=== PATIENT | female | born 1985 | race Caucasian/White ===

== ENCOUNTER 2017-01-11 18:11 | Inpatient (IN) | payer OTHER ==
[2017-01-11] MEDS ORDERED: SODIUM CHLORIDE 0.9% 500 ML IV STA (19:14)
--- NOTE | 2017-01-11 19:39 | CT ---
EXAMINATION TYPE: CT brain wo con DATE OF EXAM: 01/11/2017 COMPARISON: 06/09/2016 HISTORY: Right sided numbness x [address] DLP: 970.[address] of the brain was performed. The ventricles, basal cisterns and sulci overlying the cerebral convexities demonstrate a normal appe arance. There is no evidence for intracranial hemorrhage or sulcal effacement. No mass effects are seen. Osseous calvarium is intact. If symptoms persist consider MRI as clinically warranted. IMPRESSION: 1. No acute intracranial process is seen at this time.
[2017-01-11 19:40] LABS: Basophils # (A) 0.1 k/uL (0-0.2); Basophils % (A) 1 %; CH 31.1; CHCM 36.1; Eosinophils # (A) 0.1 k/uL (0-0.7); Eosinophils % (A) 2 %; HCT 39.9 % (34.0-46.0); HDW 2.57; HGB 14.4 gm/dL (11.4-16.0); Luc # (Auto) 0.23; Luc % (Auto) 3; Lymphocytes # (A) 2.7 k/uL (1.0-4.8); Lymphocytes % (A) 31 %; MCHC 35.9 g/dL (31.0-37.0); MCV 86.3 fL (80.0-100.0); Mean Platelet Volume 6.5; Monocytes # (A) 0.7 k/uL (0-1.0); Monocytes % (A) 8 %; Neutrophils # (A) 4.9 k/uL (1.3-7.7); Neutrophils % (A) 56 %; RBC 4.63 m/uL (3.80-5.40); RDW 12.1 % (11.5-15.5); WBC 8.7 k/uL (3.8-10.6); WBC (Perox) 8.35
--- NOTE | 2017-01-11 19:41 | XR ---
EXAMINATION TYPE: XR chest 2V DATE OF EXAM: 01/11/2017 COMPARISON: 06/09/16 HISTORY: Chest pain TECHNIQUE: Frontal and lateral views of the chest are obtained. FINDINGS: There is no focal air space opacity. No evidence for pneumothorax. No pleural effusion. The cardiac silhouette size is within normal limits. The osseous structures are grossly intact. IMPRESSION: 1. No acute cardiopulmonary process.
[2017-01-11 19:47] LABS: Amorphous Sediment,Urine Rare /hpf; Appearance,Urine Cloudy (Clear); Bacteria,Urine Rare /hpf; Bilirubin,Urine Negative (Negative); Glucose,Urine (UA) Negative (Negative); Ketones,Urine Negative (Negative); Leukocyte Esterase,Urine Negative (Negative); Mucus,Urine Rare /hpf; Nitrite,Urine Negative (Negative); Particle Count 5215; Protein,Urine Trace (Negative); RBC,Urine 1 /hpf (0-5); Squamous Epithelial Cell,Urine 8 /hpf (0-4); UA Billing (MACRO vs. MICRO) MICRO; Urobilinogen,Urine <2.0 mg/dL (<2.0); WBC,Urine 19 /hpf (0-5)
[2017-01-11 19:49] LABS: ALT 36 U/L (9-52); AST 22 U/L (14-36); Alkaline Phosphatase 41 U/L (38-126); Anion Gap 10 mmol/L; Blood Urea Nitrogen 14 mg/dL (7-17); Calcium 9.7 mg/dL (8.4-10.2); Carbon Dioxide 25 mmol/L (22-30); Chloride 108 mmol/L (98-107); Glucose 76 mg/dL (74-99); Non-African American GFR(MDRD) >60 (>60 ml/min/1.73 sqM); Potassium 3.9 mmol/L (3.5-5.1); Sodium 143 mmol/L (137-145); Total Bilirubin 0.5 mg/dL (0.2-1.3); Total Protein 7.3 g/dL (6.3-8.2)
--- NOTE | 2017-01-11 19:53 | ED ---
General Adult HPI - General Chief complaint: Chest Pain Stated complaint: numbness on rt side, chest pain, syncope Time Seen by Provider: 01/11/17 19:08 Source: patient, RN notes reviewed Mode of arrival: wheelchair Limitations: no limitations - History of Present Illness Initial comments: 31-year-old female presents to the emergency department with a chief complaint of multiple complaints. Patient states she has had changes in sensation in the right side of face and right arm and right leg and she feels as if it is weaker. Patient states she's also been having some chest pain as well. Patient states that she had the start one week ago on Monday she's been to her doctor she's into the emergency room and they could never find anything wrong. Patient states she continues to have the symptoms so she was concerned. Patient denies any fever chills nausea vomiting. Patient states she is a former smoker but did quit one week ago. Patient states that she was concerned due to her symptoms so she thought that she should be evaluated.Patient denies any recent fever, chills, shortness of breath, back pain, abdominal pain, nausea vomiting, dysuria or hematuria, constipation or diarrhea, headaches or visual changes, or any other current symptoms. - Related Data Home Medications Medication Instructions Recorded Confirmed DULoxetine HCL [Cymbalta] 30 mg PO HS 01/11/17 01/11/17 Ergocalciferol [Vitamin D2] 50,000 unit PO TH 01/11/17 01/11/17 Hydrochlorothiazide [Hydrodiuril] 25 mg PO DAILY 01/11/17 01/11/17 Allergies Allergy/AdvReac Type Severity Reaction Status Date / Time codeine Allergy Rash/Hives Verified 01/11/17 19:52 metoclopramide [From Reglan] Allergy Rash/Hives Verified 01/11/17 19:52 Penicillins Allergy Rash/Hives Verified 01/11/17 19:52 Sulfa (Sulfonamide Allergy Rash/Hives Verified 01/11/17 18:18 Antibiotics) Review of Systems ROS Statement: Those systems with pertinent positive or pertinent negative responses have been documented in the HPI. ROS Other: All systems not noted in ROS Statement are negative. Past Medical History Past Medical History: CVA/TIA, Hypertension Additional Past Medical History / Comment(s): migraines History of Any Multi-Drug Resistant Organisms: MRSA Date of last positivie culture/infection: 2005 MDRO Source:: abd Past Surgical History: Tubal Ligation Past Psychological History: Anxiety, Depression Smoking Status: Former smoker Past Alcohol Use History: None Reported Past Drug Use History: None Reported General Exam - General Exam Comments Initial Comments: General: The patient is awake and alert, in no distress, and does not appear acutely ill. Eye: Pupils are equal, round and reactive to light, extra-ocular movements are intact; there is normal conjunctiva bilaterally. No signs of icterus. Ears, nose, mouth and throat: There are moist mucous membranes. Neck: The neck is supple, there is no tenderness. Cardiovascular: There is a regular rate and rhythm. No murmur, rub or gallop is appreciated. Respiratory: Lungs are clear to auscultation, respirations are non-labored, breath sounds are equal. No wheezes, stridor, rales, or rhonchi. Gastrointestinal: Soft, non-distended, non-tender abdomen without masses or organomegaly noted. There is no rebound or guarding present. No CVA tenderness. Bowel sounds are unremarkable. Back: There is no tenderness to palpation in the midline. There is no obvious deformity. No rashes noted. Musculoskeletal: Normal ROM, no tenderness, There is no pedal edema. There is no calf tenderness or swelling. Sensation intact. Pulses equal bilaterally 2+. Neurological: CN II-XII intact, There are no obvious motor or sensory deficits. Coordination appears grossly intact. Speech is normal. patient complains of right sided difference compared to right to touch. NIH 1 due to patient complaining of abnormal sensation but still has sensation. Skin: Skin is warm and dry and no rashes or lesions are noted. Psychiatric: Cooperative, appropriate mood & affect, normal judgment. Limitations: no limitations Course Vital Signs 01/11/17 01/11/17 18:14 20:17 Temperature 97.9 F 98.6 F Pulse Rate 92 71 Respiratory 18 18 Rate Blood Pressure 157/85 142/71 O2 Sat by Pulse 100 100 Oximetry EKG Findings - EKG Comments: EKG Findings:: normal sinus rhythm 74 bpm, normal axis, no atopy, no S-T depressions or elevations, Medical Decision Making - Medical Decision Making 31 yo female presents to the ER with multiple complaints. At this time due to the continued numbness and tingling to the right arm leg and right side of the face there is concern for possible CVA. Patient was given aspirin. We will admit. Patient is complaining of chest pain on and off as well. Troponins are negative and it has been on and off for the past week. We will repeat troponins for evaluation however we will. EKG does not show any visits to the emergency department. Patient denies any recent this plan. We did contact on- call for city in the do accept the admission to Dr. Winslow. - Lab Data Result diagrams: 01/11/17 19:10 01/11/17 19:10 Lab Results 01/11/17 01/11/17 01/11/17 Range/Units 19:10 19:10 19:10 WBC 8.7 (3.8-10.6) k/uL RBC 4.63 (3.80-5.40) m/uL Hgb 14.4 (11.4-16.0) gm/dL Hct 39.9 (34.0-46.0) % MCV 86.3 (80.0-100.0) fL MCH 31.0 (25.0-35.0) pg MCHC 35.9 (31.0-37.0) g/dL RDW 12.1 (11.5-15.5) % Plt Count 351 (150-450) k/uL Neutrophils % 56 % Lymphocytes % 31 % Monocytes % 8 % Eosinophils % 2 % Basophils % 1 % Neutrophils # 4.9 (1.3-7.7) k/uL Lymphocytes # 2.7 (1.0-4.8) k/uL Monocytes # 0.7 (0-1.0) k/uL Eosinophils # 0.1 (0-0.7) k/uL Basophils # 0.1 (0-0.2) k/uL PT (9.0-12.0) sec INR (<1.1) APTT (22.0-30.0) sec Sodium 143 (137-145) mmol/L Potassium 3.9 (3.5-5.1) mmol/L Chloride 108 H (98-107) mmol/L Carbon Dioxide 25 (22-30) mmol/L Anion Gap 10 mmol/L BUN 14 (7-17) mg/dL Creatinine 0.62 (0.52-1.04) mg/dL Est GFR (MDRD) Af Amer >60 (>60 ml/min/1.73 sqM) Est GFR (MDRD) Non-Af >60 (>60 ml/min/1.73 sqM) Glucose 76 (74-99) mg/dL Calcium 9.7 (8.4-10.2) mg/dL Total Bilirubin 0.5 (0.2-1.3) mg/dL AST 22 (14-36) U/L ALT 36 (9-52) U/L Alkaline Phosphatase 41 (38-126) U/L Total Creatine Kinase 66 (30-135) U/L CK-MB (CK-2) <0.2 (0.0-2.4) ng/mL CK-MB (CK-2) Rel Index Troponin I <0.012 (0.000-0.034) ng/mL Total Protein 7.3 (6.3-8.2) g/dL Albumin 4.5 (3.5-5.0) g/dL Urine Color Urine Appearance (Clear) Urine pH (5.0-8.0) Ur Specific [place] (1.001-1.035) Urine Protein (Negative) Urine Glucose (UA) (Negative) Urine Ketones (Negative) Urine Blood (Negative) Urine Nitrite (Negative) Urine Bilirubin (Negative) Urine Urobilinogen (<2.0) mg/dL Ur Leukocyte Esterase (Negative) Urine RBC (0-5) /hpf Urine WBC (0-5) /hpf Ur Squamous Epith Cells (0-4) /hpf Amorphous Sediment (None) /hpf Urine Bacteria (None) /hpf Urine Mucus (None) /hpf Urine Opiates Screen (NotDetected) Ur Oxycodone Screen (NotDetected) Urine Methadone Screen (NotDetected) Ur Propoxyphene Screen (NotDetected) Ur Barbiturates Screen (NotDetected) U Tricyclic Antidepress (NotDetected) Ur Phencyclidine Scrn (NotDetected) Ur Amphetamines Screen (NotDetected) U Methamphetamines Scrn (NotDetected) U Benzodiazepines Scrn (NotDetected) Urine Cocaine Screen (NotDetected) U Marijuana (THC) Screen (NotDetected) 01/11/17 01/11/17 Range/Units 19:10 19:10 WBC (3.8-10.6) k/uL RBC (3.80-5.40) m/uL Hgb (11.4-16.0) gm/dL Hct (34.0-46.0) % MCV (80.0-100.0) fL MCH (25.0-35.0) pg MCHC (31.0-37.0) g/dL RDW (11.5-15.5) % Plt Count (150-450) k/uL Neutrophils % % Lymphocytes % % Monocytes % % Eosinophils % % Basophils % % Neutrophils # (1.3-7.7) k/uL Lymphocytes # (1.0-4.8) k/uL Monocytes # (0-1.0) k/uL Eosinophils # (0-0.7) k/uL Basophils # (0-0.2) k/uL PT 10.3 (9.0-12.0) sec INR 1.0 (<1.1) APTT 22.8 (22.0-30.0) sec Sodium (137-145) mmol/L Potassium (3.5-5.1) mmol/L Chloride (98-107) mmol/L Carbon Dioxide (22-30) mmol/L Anion Gap mmol/L BUN (7-17) mg/dL Creatinine (0.52-1.04) mg/dL Est GFR (MDRD) Af Amer (>60 ml/min/1.73 sqM) Est GFR (MDRD) Non-Af (>60 ml/min/1.73 sqM) Glucose (74-99) mg/dL Calcium (8.4-10.2) mg/dL Total Bilirubin (0.2-1.3) mg/dL AST (14-36) U/L ALT (9-52) U/L Alkaline Phosphatase (38-126) U/L Total Creatine Kinase (30-135) U/L CK-MB (CK-2) (0.0-2.4) ng/mL CK-MB (CK-2) Rel Index Troponin I (0.000-0.034) ng/mL Total Protein (6.3-8.2) g/dL Albumin (3.5-5.0) g/dL Urine Color Yellow Urine Appearance Cloudy H (Clear) Urine pH 6.0 (5.0-8.0) Ur Specific [place] 1.020 (1.001-1.035) Urine Protein Trace H (Negative) Urine Glucose (UA) Negative (Negative) Urine Ketones Negative (Negative) Urine Blood Negative (Negative) Urine Nitrite Negative (Negative) Urine Bilirubin Negative (Negative) Urine Urobilinogen <2.0 (<2.0) mg/dL Ur Leukocyte Esterase Negative (Negative) Urine RBC 1 (0-5) /hpf Urine WBC 19 H (0-5) /hpf Ur Squamous Epith Cells 8 H (0-4) /hpf Amorphous Sediment Rare H (None) /hpf Urine Bacteria Rare H (None) /hpf Urine Mucus Rare H (None) /hpf Urine Opiates Screen Not Detected (NotDetected) Ur Oxycodone Screen Not Detected (NotDetected) Urine Methadone Screen Not Detected (NotDetected) Ur Propoxyphene Screen Not Detected (NotDetected) Ur Barbiturates Screen Not Detected (NotDetected) U Tricyclic Antidepress Not Detected (NotDetected) Ur Phencyclidine Scrn Not Detected (NotDetected) Ur Amphetamines Screen Not Detected (NotDetected) U Methamphetamines Scrn Not Detected (NotDetected) U Benzodiazepines Scrn Not Detected (NotDetected) Urine Cocaine Screen Not Detected (NotDetected) U Marijuana (THC) Screen Not Detected (NotDetected) - Radiology Data Radiology results: report reviewed, image reviewed Disposition Clinical Impression: Atypical chest pain, Paresthesia of right arm and leg Disposition: ADMITTED IP TO THIS [facility] Condition: Stable Referrals: Nonstaff,Physician [Primary Care Provider] - 1-2 days Time of Disposition: 21:34 Decision Date: 01/11/17 Decision Time: 21:34
[2017-01-11 19:57] LABS: Partial Thromboplastin Time 22.8 sec (22.0-30.0); Prothrombin Time 10.3 sec (9.0-12.0)
[2017-01-11 20:25] LABS: Creatine Kinase 66 U/L (30-135)
[2017-01-11 20:39] LABS: Creatine Kinase MB <0.2 ng/mL (0.0-2.4); Troponin I <0.012 ng/mL (0.000-0.034)
[2017-01-11] MEDS ORDERED: ASPIRIN 325 MG TAB PO STA (21:34)
[2017-01-11 23:39] VITALS: BMI 39.4
[2017-01-12 07:10] LABS: Cholesterol 173 mg/dL (<200); HDL Cholesterol 36 mg/dL (40-60); Triglycerides 275 mg/dL (<150)
[2017-01-12] MEDS ORDERED: ERGOCALCIFEROL 50,000 UNIT CAP PO SCH (09:00)
[2017-01-12] MEDS: HYDROCHLOROTHIAZIDE 25 MG TAB PO SCH (09:43)
[2017-01-12] MEDS: ASPIRIN 325 MG TAB PO SCH (09:43)
--- NOTE | 2017-01-12 11:25 | US ---
EXAMINATION TYPE: US carotid duplex BILAT DATE OF EXAM: 01/11/2017 COMPARISON: NONE CLINICAL HISTORY: Stenosis. EXAM MEASUREMENTS: RIGHT: Peak Systolic Velocity (PSV) cm/sec ----- Right CCA: 88.6 ----- Right ICA: 88.6 ----- Right ECA: 90.0 ICA/CCA ratio: 1.2 RIGHT: End Diastole cm/sec ----- Right CCA: 18.8 ----- Right ICA: 42.0 ----- Right ECA: 10.0 LEFT: Peak Systolic Velocity (PSV) cm/sec ----- Left CCA: 79.2 ----- Left ICA: 85.8 ----- Left ECA: 67.3 ICA/CCA ratio: 1.1 LEFT: End Diastole cm/sec ----- Left CCA: 27.6 ----- Left ICA: 38.2 ----- Left ECA: 13.1 VERTEBRALS (direction of flow): Right Vertebral: Antegrade Left Vertebral: Antegrade Minimal plaque visualized bilaterally. No elevated velocities IMPRESSION: 1. Minimal plaque bilaterally with no significant hemodynamic stenosis.
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
[2017-01-12] MEDS ORDERED: ACETAMINOPHEN TAB 325 MG TAB PO PRN (18:36)
[2017-01-12] MEDS ORDERED: NAPROXEN 250 MG TAB PO STA (18:43)
[2017-01-12] MEDS ORDERED: DULoxetine HCL 30 MG CAPSULE.DR PO SCH (21:00)
--- NOTE | 2017-01-12 21:07 | MR ---
EXAMINATION TYPE: MR brain wo/w con DATE OF EXAM: 01/12/2017 COMPARISON: NONE HISTORY: Right sided paresthesia, atypical chest pain TECHNIQUE: Multiplanar, multisequence images of the brain and brainstem is performed without and with IV contrast, utilizing 20 mL intravenous MultiHance . FINDINGS: Diffusion weighted images demonstrate no evidence of a recent infarct or other diffusion ab normality. There is no extra-axial fluid collection or significant white matter signal abnormality. The ventricular system and cisternal spaces are normal in size and appearance. The brain volume is age appropriate. Midline structures demonstrate normal morphology. The craniocervical junction appears within normal limits. Post contrast images demonstrate no abnormal enhancement. The dural venous sinuses appear pa tent. The visualized sinuses are clear and the globes are intact. IMPRESSION: No acute process or focal findings.
--- NOTE | 2017-01-12 22:49 | CONS ---
DATE OF CONSULTATION: 01/12/2017 CHIEF COMPLAINT: Right-sided numbness. HISTORY OF PRESENT ILLNESS: The patient is a 31-year-old female who is being evaluated by the neurology service per the request of Dr. Feliciano for right-sided numbness. The patient states that she has been having numbness and tingling involving her right face and in different locations of the right upper extremity and right lower extremity. She states that her hand and fingers have been numb on the right side and she is also having numbness in the distal right lower extremity and occasionally in the right thigh. Her symptoms started 2 to 3 weeks ago, and she denies any lateralizing weakness. She states that she did go to [facility] last weekend and a workup was done; she was told that "everything is fine" and she was discharged home. Over the past 2 days, she started having some blurred vision in the right eye without any ocular pain. When asked about previous symptoms similar to this, she states that she did have similar symptoms a few years ago, but the workup was negative at that time as well. On this admission, a CT scan of the brain was done which was normal. Her carotid Doppler showed no hemodynamically significant stenosis. Her CBC, comprehensive metabolic profile, cardiac enzymes, and urine drug screen were reviewed and were normal. Her urinalysis showed 19 WBCs and her fasting lipid panel showed mildly elevated triglycerides at 275. The patient was admitted for further workup and management. At the time of my evaluation, she is lying in her bed and appears to be in no acute distress. She denies any changes in her right-sided numbness but states that her blurred vision has improved. She does report a family history of multiple sclerosis. PAST MEDICAL HISTORY: 1. Hypertension. 2. Migraine headaches. 3. Sleep apnea. 4. Depression. 5. Anxiety disorder. 6. History of tubal ligation. FAMILY HISTORY: Positive for multiple sclerosis, dyslipidemia and hypertension. SOCIAL HISTORY: The patient is a former smoker. She quit one month ago. She denies any alcohol or drug use. HOME MEDICATIONS: Reviewed in the chart. ALLERGIES: 1. CODEINE. 2. REGLAN. 3. PENICILLIN. 4. SULFA DRUGS. REVIEW OF SYSTEMS: CONSTITUTIONAL: Positive for fatigue. EYES: As mentioned above. ENT: Negative. CARDIOVASCULAR: Negative. RESPIRATORY: Negative. NEUROLOGICAL: As mentioned above. GASTROINTESTINAL: Negative. GENITOURINARY: Negative. PSYCHIATRIC: Positive for history of depression and anxiety disorder. ENDOCRINE: Negative. MUSCULOSKELETAL: Negative. DERMATOLOGICAL: Negative. PHYSICAL EXAM: Vitals signs show a temperature of 97.9, pulse 82, respiration 16, blood pressure 147/83. GENERAL APPEARANCE: The patient is a mildly obese female who appears to be in no acute distress. HEENT: Normocephalic, atraumatic. No facial asymmetry is seen. Extraocular muscles are intact. Neck is supple with no masses felt. CARDIOVASCULAR: Regular rate and rhythm. ABDOMEN: Non-tender. Non-distended. Extremities showed no edema or clubbing. NEUROLOGICAL EXAM: The patient is alert, aware and oriented x3. Speech and language are normal. Strength is full in all 4 extremities. Sensory exam showed diminished light touch sensation on the right upper and lower extremity compared to the left. Cranial nerve testing showed diminished light touch sensation on the right face compared to the left. No pronator drift is seen. No dysmetria is noticed on [id number] testing. No tremors or seizure-like activity is seen. INVESTIGATION: The patient did have an MRI of the brain with and without contrast. The report is still pending, but I did review the images, which showed a single solitary non-specific white matter lesion involving the right posterior frontal lobe with no abnormal contrast enhancement. IMPRESSION: 1. Right-sided numbness and tingling. 2. Non-specific white matter changes. 3. Urinary tract infection. RECOMMENDATION: The patient continues to have numbness and tingling involving the right side and she does have a sensory deficit on neurological examination. She does report a previous episode similar to this a few years ago and does have a family history of multiple sclerosis. Although the non-specific white matter lesion seen on the MRI of the brain does not explain her right-sided numbness, further neurological workup will be needed, which will include spinal fluid evaluation, which will be done in the outpatient setting. Her official MRI of the brain report was still pending at the time of my evaluation. I will start her on Solu-Medrol 250 mg IV every 8 hours and will monitor for improvements over the next 24 to 48 hours. I do recommend antibiotic therapy for her urinary tract infection. Continue neuro checks. I will continue to follow with you. Further recommendations to follow. Thank you for allowing me to participate in the care of your patient. If you have any questions, please feel free to contact me. JACK
[2017-01-12 23:05] LABS: Glucose,Whole Blood 120 mg/dL (75-99)
[2017-01-13 05:30] LABS: Glucose,Whole Blood 169 mg/dL (75-99)
[2017-01-13 06:44] LABS: CHCM 35.5; HCT 41.9 % (34.0-46.0); HDW 2.57; HGB 15.2 gm/dL (11.4-16.0); MCH 31.8 pg (25.0-35.0); MCHC 36.3 g/dL (31.0-37.0); MCV 87.6 fL (80.0-100.0); Mean Platelet Volume 6.6; RBC 4.78 m/uL (3.80-5.40); RDW 11.9 % (11.5-15.5); WBC 9.5 k/uL (3.8-10.6)
[2017-01-13 07:07] LABS: Anion Gap 15 mmol/L; Blood Urea Nitrogen 11 mg/dL (7-17); Calcium 9.5 mg/dL (8.4-10.2); Carbon Dioxide 18 mmol/L (22-30); Chloride 108 mmol/L (98-107); Cholesterol 222 mg/dL (<200); Glucose 155 mg/dL (74-99); HDL Cholesterol 54 mg/dL (40-60); Non-African American GFR(MDRD) >60 (>60 ml/min/1.73 sqM); Potassium 4.4 mmol/L (3.5-5.1); Sodium 141 mmol/L (137-145); Triglycerides 78 mg/dL (<150)
[2017-01-13] MEDS: HYDROCHLOROTHIAZIDE 25 MG TAB PO SCH (09:27)
[2017-01-13] MEDS: ASPIRIN 325 MG TAB PO SCH (09:27)
[2017-01-13 11:46] LABS: Glucose,Whole Blood 183 mg/dL (75-99)
[2017-01-13] MEDS ORDERED: ACETAMINOPHEN TAB 325 MG TAB PO PRN (11:56)
[2017-01-13] MEDS: INSULIN LISPRO (humaLOG) 300 UNIT/3 ML VIAL SQ SCH ×3 (13:12→22:26)
[2017-01-13 13:59] LABS: Hemoglobin A1C 5.1 % (4.2-6.1)
--- NOTE | 2017-01-13 15:52 | P.DS ---
Providers Date of admission: 01/11/17 21:50 Attending physician: Clarisse Feliciano Consults: 01/11/17 21:35 Consult Physician Routine Consulting Provider: Maricarmen Leone Consult Reason/Comments: paresthesia Do you want consulting provider notified?: Yes, Notify in am Primary care physician: Physician Nonstaff Hospital Course: 39-year-old female came in with sensory deficits on the right side multiple areas not consistent with CVA or any particular area in the brain. Patient underwent workup for CVA. Patient was worked up with an MRI for multiple cirrhosis MRI official radiology reading was negative. As per the neurologist there is some demyelinating lesions in the right side of the body and patient will need further workup for multiple sclerosis as an outpatient and [place] patient will follow with neurology as an outpatient for that patient was given high-dose of steroids here although patient still has areas which are numb without any significant improvement. Patient will be discharged on Medrol Dosepak. Her hemoglobin A1c is 5.1. #1 focal areas of numbness: 2 chest pain: Atypical nature ruled out acute coronary syndromes. 3 hypertension: Uncontrolled blood pressure and had good thiazide which will be continued. Obesity: Counseled was provided #4 patient does not have UTI patient's urine is contaminated and patient does not have any symptoms of urinary tract infection. Patient Condition at Discharge: Stable Plan - Discharge Summary New Discharge Prescriptions: New methylPREDNISolone Dose Pack [Medrol Dose Pack] 4 mg PO DIRECTED #21 package No Action Hydrochlorothiazide [Hydrodiuril] 25 mg PO DAILY Ergocalciferol [Vitamin D2] 50,000 unit PO TH DULoxetine HCL [Cymbalta] 30 mg PO HS Discharge Medication List DULoxetine HCL [Cymbalta] 30 mg PO HS 01/11/17 [History] Ergocalciferol [Vitamin D2] 50,000 unit PO TH 01/11/17 [History] Hydrochlorothiazide [Hydrodiuril] 25 mg PO DAILY 01/11/17 [History] methylPREDNISolone Dose Pack [Medrol Dose Pack] 4 mg PO DIRECTED #21 package 01/13/17 [Rx] Follow up Appointment(s)/Referral(s): Maricarmen Leone MD [STAFF PHYSICIAN] - 1 Week Nonstaff,Physician [Primary Care Provider] - 1-2 days
[2017-01-13 16:54] LABS: Glucose,Whole Blood 148 mg/dL (75-99)
[2017-01-13] MEDS ORDERED: SODIUM CHLORIDE 0.9% 1,000 ML IV SCH (17:30)
[2017-01-13] MEDS: SODIUM CHLORIDE 0.9% 1,000 ML IV SCH (20:05)
[2017-01-13 20:53] LABS: Glucose,Whole Blood 162 mg/dL (75-99)
[2017-01-13] MEDS ORDERED: NALOXONE 0.4 MG/ML 1 ML VIAL IV PRN (21:42)
[2017-01-13] MEDS ORDERED: VANCOMYCIN 1,500 MG in SODIUM CHLORIDE 0.9% 250 ML IVPB ONE (22:04)
[2017-01-13] MEDS: ALPRAZolam 0.25 MG TAB PO PRN (22:18)
[2017-01-13 22:23] LABS: Basophils % (A) 0 %; CHCM 35.2; Eosinophils # (A) 0.1 k/uL (0-0.7); Eosinophils % (A) 0 %; HCT 40.6 % (34.0-46.0); HDW 2.53; HGB 14.2 gm/dL (11.4-16.0); Luc # (Auto) 0.07; Luc % (Auto) 0; Lymphocytes # (A) 0.9 k/uL (1.0-4.8); Lymphocytes % (A) 4 %; MCH 30.8 pg (25.0-35.0); MCHC 34.9 g/dL (31.0-37.0); MCV 88.4 fL (80.0-100.0); Mean Platelet Volume 6.7; Monocytes # (A) 0.5 k/uL (0-1.0); Monocytes % (A) 2 %; Neutrophils # (A) 20.8 k/uL (1.3-7.7); Neutrophils % (A) 93 %; RDW 12.1 % (11.5-15.5); WBC 22.3 k/uL (3.8-10.6)
[2017-01-13 22:28] LABS: INR 1.1 (<1.2)
[2017-01-13 22:38] LABS: ALT 37 U/L (9-52); AST 23 U/L (14-36); Alkaline Phosphatase 50 U/L (38-126); Anion Gap 14 mmol/L; Blood Urea Nitrogen 12 mg/dL (7-17); Calcium 9.5 mg/dL (8.4-10.2); Carbon Dioxide 19 mmol/L (22-30); Chloride 109 mmol/L (98-107); Glucose 159 mg/dL (74-99); Non-African American GFR(MDRD) >60 (>60 ml/min/1.73 sqM); Potassium 3.4 mmol/L (3.5-5.1); Sodium 142 mmol/L (137-145); Total Bilirubin 0.2 mg/dL (0.2-1.3); Total Protein 6.9 g/dL (6.3-8.2)
[2017-01-13] MEDS ORDERED: DULoxetine HCL 30 MG CAPSULE.DR PO ONE (22:45)
--- NOTE | 2017-01-13 22:49 | P.PN ---
Subjective Principal diagnosis: Right-sided paresthesias of the skin Patient is a 31-year-old female being followed by neurology for right-sided numbness and tingling. Patient has been having numbness and tingling involving her right face and in various locations of the right upper extremity and right lower extremity over the past several weeks. States that her hand and fingers have been numb on the right side and is also having numbness in the distal right lower extremity and occasionally in the right thigh. Patient denies any lateralizing weakness. States she did present at [facility] last week and was told that they were unable to identify any underlying etiology. Over the past 2 days she began having blurred vision in the right eye without any ocular pain. Patient states she had similar symptoms a few years ago but the workup conducted at that time was negative as well. CT of the brain was normal. Carotid Doppler showed no hemodynamically significant stenosis. CBC, CMP, cardiac enzymes and urine drug screen were normal. UA indicated 19 wbc's in her fasting lipid panel showed mildly elevated triglycerides at 275. Patient admitted for further workup and management. Patient was supine in bed, resting and in no acute distress. Patient was alert and oriented 3. Patient was post Solu-Medrol IV infusion as previously ordered. Objective - Vital Signs Vital signs: Vital Signs Temp 98.5 F 01/13/17 15:00 Pulse 119 H 01/13/17 15:00 Resp 18 01/13/17 15:00 BP 151/85 01/13/17 15:00 Pulse Ox 94 L 01/13/17 15:00 Intake & Output 01/13/17 01/13/17 01/14/17 06:59 18:59 06:59 Intake Total 380 300 Output Total 200 Balance 180 300 Weight 112.5 kg Intake: IV 100 100 methylPREDNISolone SOD 100 100 SUCC 250 mg In Sodium Chloride 0.9% 100 ml @ 100 mls/hr IVPB Q8H [facility] Rx#:[id number] Intake, IV Titration 100 Amount methylPREDNISolone SOD 100 SUCC 250 mg In Sodium Chloride 0.9% 100 ml @ 100 mls/hr IVPB Q8H [facility] Rx#:[id number] Oral 180 200 Output: Urine 200 Other: Voiding Method Toilet Toilet # Voids 1 - Exam Constitutional: AOx3, cooperative HEENT: NC/AT, no facial asymmetry is seen. Throat: Supple, no masses Respiratory: No increased work of breathing Cardiac: Regular rate and Rhythm GI: non tender, non distended Musculoskeletal: Ammonia Nitrate Operator strengths are equal bilaterally 5/5, Lower extremity strengths are equal bilaterally at 5/5. Neurological: CN II-XII in tact, patient was AOx3, speech and language are normal, no unilateralizing weakness, no seizure activity note on physical exam. Sensation was normal. Integementary: no rash, no erythema Psychiatric: mood and affect appropriate - Labs CBC & Chem 7: 01/13/17 22:11 01/13/17 06:11 Labs: Abnormal Lab Results - Last 24 Hours (Table) 01/12/17 01/13/17 01/13/17 Range/Units 23:03 05:29 06:11 WBC (3.8-10.6) k/uL Neutrophils # (1.3-7.7) k/uL Lymphocytes # (1.0-4.8) k/uL Chloride 108 H (98-107) mmol/L Carbon Dioxide 18 L (22-30) mmol/L Glucose 155 H (74-99) mg/dL POC Glucose (mg/dL) 120 H 169 H (75-99) mg/dL Plasma Lactic Acid Raf (0.7-2.0) mmol/L Cholesterol 222 H (<200) mg/dL LDL Cholesterol, Calc 152 H (0-99) mg/dL 01/13/17 01/13/17 01/13/17 Range/Units 11:45 16:15 16:51 WBC (3.8-10.6) k/uL Neutrophils # (1.3-7.7) k/uL Lymphocytes # (1.0-4.8) k/uL Chloride (98-107) mmol/L Carbon Dioxide (22-30) mmol/L Glucose (74-99) mg/dL POC Glucose (mg/dL) 183 H 148 H (75-99) mg/dL Plasma Lactic Acid Raf 4.3 H* (0.7-2.0) mmol/L Cholesterol (<200) mg/dL LDL Cholesterol, Calc (0-99) mg/dL 01/13/17 01/13/17 01/13/17 Range/Units 19:03 20:51 22:11 WBC 22.3 H (3.8-10.6) k/uL Neutrophils # 20.8 H (1.3-7.7) k/uL Lymphocytes # 0.9 L (1.0-4.8) k/uL Chloride (98-107) mmol/L Carbon Dioxide (22-30) mmol/L Glucose (74-99) mg/dL POC Glucose (mg/dL) 162 H (75-99) mg/dL Plasma Lactic Acid Raf 6.3 H* (0.7-2.0) mmol/L Cholesterol (<200) mg/dL LDL Cholesterol, Calc (0-99) mg/dL Assessment and Plan (1) Paresthesia of right arm and leg Status: Acute (2) Migraine headache Status: Acute (3) Sleep apnea Status: Acute (4) Depression Status: Acute (5) Anxiety Status: Acute Plan: Patient has completed IV steroid infusion with decreased symptoms in the right side. Patient's sensory deficit on neurological exam has returned to baseline. Patient does have a history of similar episode several years ago and does have a positive family history for multiple sclerosis. As noted previously the nonspecific white matter lesion seen on MRI of the brain does not explain her right-sided numbness, further outpatient neurological workup will be needed including spinal fluid evaluation/lumbar puncture but again this can be done in the outpatient setting. Patient was given IV Solu-Medrol to 50 mg IV every 8 hours for greater than 24 hours. Patient did receive antibiotic therapy for her urinary tract infection. Treatment: Medrol Dosepak to be continued outpatient Status: Patient can be cleared for discharge from a neurological standpoint. Patient to follow-up outpatient within 10-14 days for further diagnostic workup as noted above. I discussed the patient's pertinent medical information with Dr. Leone. He agrees with the plan of care as implemented.
[2017-01-13] MEDS: DULoxetine HCL 60 MG CAPSULE.DR PO SCH (22:53)
[2017-01-13 22:59] LABS: Magnesium 1.8 mg/dL (1.6-2.3); Phosphorous 2.6 mg/dL (2.5-4.5)
[2017-01-13] MEDS ORDERED: RX INFO: IV CONTRAST WAS GIVEN 1 EACH MISC MISCELLANE PRN (23:00)
[2017-01-13] MEDS ORDERED: Magnesium Replacement Protocol 1 EACH MISC MISCELLANE PRN (23:13)
[2017-01-13] MEDS ORDERED: Potassium Replacement Protocol 1 EACH MISC MISCELLANE PRN (23:13)
[2017-01-13] MEDS: MORPHINE SULFATE 4 MG/ML SYRINGE IVP PRN (23:16)
[2017-01-13] MEDS: IOHEXOL 350 MG/ML 25 ML BOTTLE (ORAL USE) PO PRN (23:40)
[2017-01-13] MEDS: MAGNESIUM SULFATE-D5W PMX 1 GM in DEXTROSE/WATER 1 100ML.BAG IVPB SCH (23:45)
[2017-01-13] MEDS ORDERED: KETOROLAC 30 MG/ML 1 ML VIAL IVP PRN (23:57)
[2017-01-14] MEDS ORDERED: KETOROLAC 30 MG/ML 1 ML VIAL IVP SCH
[2017-01-14] MEDS: CEFEPIME 1 GM in SODIUM CHLORIDE 0.9% 50 ML IVPB SCH ×3 (00:16→16:35)
[2017-01-14] MEDS: IOHEXOL 350 MG/ML 25 ML BOTTLE (ORAL USE) PO PRN (00:16)
[2017-01-14] MEDS: POTASSIUM CHLORIDE ER 20 MEQ TAB.ER PO SCH ×2 (01:32→01:33)
[2017-01-14] MEDS: MAGNESIUM SULFATE-D5W PMX 1 GM in DEXTROSE/WATER 1 100ML.BAG IVPB SCH (01:33)
[2017-01-14] MEDS: HEPARIN SODIUM,PORCINE 5,000 UNIT/ML 1 ML VIAL SQ SCH ×4 (01:33→16:32)
--- NOTE | 2017-01-14 01:50 | CT ---
EXAM: CT Abdomen and Pelvis With Intravenous Contrast CLINICAL HISTORY: Right sided abdominal pain. TECHNIQUE: Axial computed tomography images of the abdomen and pelvis with intravenous contrast. CTDI is 61.3 mGy and DLP is 3045.60 mGy-cm. This CT exam was performed using one or more of the following dose reduction techniques: automated exposure control, adjustment of the mA and/or kV according to patient size, and/or use of iterative reconstruction technique. COMPARISON: None. FINDINGS: Lower thorax: Minimal dependent atelectasis seen involving both lower lobes. ABDOMEN: Liver: Evidence of hepatic steatosis. Gallbladder and bile ducts: Unremarkable. No calcified stones. No ductal dilation. Pancreas: Unremarkable. No mass. No ductal dilation. Spleen: Unremarkable. No splenomegaly. Adrenals: Unremarkable. No mass. Kidneys and ureters: Unremarkable. No solid mass. No hydronephrosis. Stomach and bowel: Unremarkable. No obstruction. No mucosal thickening. Appendix: Normal appendix is identified. PELVIS: Bladder: Unremarkable. No mass. Reproductive: Unremarkable as visualized. ABDOMEN and PELVIS: Intraperitoneal space: Unremarkable. No free air. No significant fluid collection. Bones/joints: No acute fracture. No dislocation. Soft tissues: Unremarkable. Vasculature: Unremarkable. No abdominal aortic aneurysm. Lymph nodes: Unremarkable. No enlarged lymph nodes. IMPRESSION: 1. Hepatic steatosis suggested. 2. No acute intra-abdominal pathology.
[2017-01-14] MEDS: SODIUM CHLORIDE 0.9% 1,000 ML IV SCH ×2 (03:40→12:21)
[2017-01-14 05:05] LABS: Basophils % (A) 0 %; CH 30.7; CHCM 34.9; Eosinophils # (A) 0.1 k/uL (0-0.7); Eosinophils % (A) 1 %; HDW 2.49; HGB 13.7 gm/dL (11.4-16.0); Luc % (Auto) 0; Lymphocytes # (A) 1.2 k/uL (1.0-4.8); Lymphocytes % (A) 5 %; MCH 31.1 pg (25.0-35.0); MCHC 35.2 g/dL (31.0-37.0); MCV 88.4 fL (80.0-100.0); Mean Platelet Volume 6.9; Monocytes # (A) 0.7 k/uL (0-1.0); Monocytes % (A) 3 %; Neutrophils # (A) 22.9 k/uL (1.3-7.7); Neutrophils % (A) 92 %; RBC 4.41 m/uL (3.80-5.40); RDW 12.1 % (11.5-15.5); WBC 24.9 k/uL (3.8-10.6)
[2017-01-14 05:29] LABS: ALT 37 U/L (9-52); AST 19 U/L (14-36); Alkaline Phosphatase 46 U/L (38-126); Anion Gap 13 mmol/L; Blood Urea Nitrogen 12 mg/dL (7-17); Calcium 9.1 mg/dL (8.4-10.2); Carbon Dioxide 20 mmol/L (22-30); Chloride 108 mmol/L (98-107); Glucose 149 mg/dL (74-99); Magnesium 2.5 mg/dL (1.6-2.3); Non-African American GFR(MDRD) >60 (>60 ml/min/1.73 sqM); Potassium 4.4 mmol/L (3.5-5.1); Sodium 141 mmol/L (137-145); Total Bilirubin 0.3 mg/dL (0.2-1.3); Total Protein 6.6 g/dL (6.3-8.2)
[2017-01-14 05:32] LABS: INR 1.1 (<1.2); Prothrombin Time 10.7 sec (9.0-12.0)
[2017-01-14] MEDS: INSULIN LISPRO (humaLOG) 300 UNIT/3 ML VIAL SQ SCH ×4 (08:07→21:57)
[2017-01-14] MEDS: DULoxetine HCL 60 MG CAPSULE.DR PO SCH (08:08)
[2017-01-14] MEDS: ASPIRIN 325 MG TAB PO SCH (08:08)
[2017-01-14] MEDS ORDERED: PANTOPRAZOLE 40 MG/10 ML VIAL IV SCH (09:00)
[2017-01-14] MEDS ORDERED: DULoxetine HCL 60 MG CAPSULE.DR PO SCH ×2 (09:00→21:00)
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
[2017-01-14 12:21] LABS: Glucose,Whole Blood 142 mg/dL (75-99)
[2017-01-14 12:26] LABS: Appearance,Urine Clear (Clear); Bilirubin,Urine Negative (Negative); Glucose,Urine (UA) 4+ (Negative); Ketones,Urine 1+ (Negative); Leukocyte Esterase,Urine Negative (Negative); Nitrite,Urine Negative (Negative); Protein,Urine Trace (Negative); Specific Gravity,Urine 1.033 (1.001-1.035); UA Billing (MACRO vs. MICRO) CHEM; Urobilinogen,Urine <2.0 mg/dL (<2.0)
[2017-01-14] MEDS: MORPHINE SULFATE 4 MG/ML SYRINGE IVP PRN ×2 (12:27→18:26)
--- NOTE | 2017-01-14 13:39 | P.PN ---
Subjective Patient came in with tingling and numbness in the patient was discharged Medrol Dosepak yesterdayl as patient had anion gap although patient was initially discharged I did order lactic acid which came back at about 4 later in the day went up to 6 source sepsis is not clear and patient had leukocytosis of 22,000 which may be secondary to the systemic steroids she is on. Although because of significant elevation lactic acid there is a concern of autoimmune hepatitis along with unknown source of sepsis because of which patient was transferred to ICU for close clinical monitoring patient was afebrile. Overnight. Patient lactic acid has come down. Now started going up again. Patient may have had D - lactate or extremely rare case scenario and mitochondrial disorder, considering the significant elevation we will wait for infectious diseases evaluation. Patient was started on vancomycin and cefepime yesterday, vancomycin was discontinued which I believe is appropriate. Septum is being continued. Patient will transfer to regular floor will watch her one more night. If patient doesn't have any other signs or symptoms of sepsis patient will be discharged tomorrow. Her urine is not impressive for urinary tract infection and patient doesn't have any symptoms of UTI. REVIEW OF SYSTEMS: CARDIOVASCULAR: No chest pain, no orthopnea, no PND, no palpitations. PULMONARY: Denied any shortness of breath. No cough or hemoptysis. GASTROINTESTINAL: No diarrhea, nausea or vomiting. No abdominal pain. Normoactive bowel sounds. NEUROLOGIC: No headaches, no weakness, no numbness. Objective - Vital Signs Vital signs: Vital Signs Temp 98.0 F 01/14/17 12:00 Pulse 81 01/14/17 12:00 Resp 18 01/14/17 12:00 BP 141/86 01/14/17 12:00 Pulse Ox 95 01/14/17 12:00 Intake & Output 01/13/17 01/14/17 01/14/17 18:59 06:59 18:59 Intake Total 300 1850 620 Output Total 1250 850 Balance 300 600 -230 Weight 116.6 kg 116.6 kg Intake: IV 100 1850 300 Cefepime 1 gm In Sodium 50 Chloride 0.9% 50 ml @ 100 mls/hr IVPB Q8HR [facility] Rx# :[id number] Magnesium Sulfate-D5w Pmx 200 1 gm In Dextrose/Water 1 100ml.bag @ 100 mls/hr IVPB Q1H [facility] Rx#: [id number] Sodium Chloride 0.9% 1, 1350 300 000 ml @ 150 mls/hr IV . Q6H40M [facility] Rx#:[id number] Vancomycin 1,500 mg In 250 Sodium Chloride 0.9% 250 ml @ 125 mls/hr IVPB ONCE ONE Rx#:[id number] methylPREDNISolone SOD 100 SUCC 250 mg In Sodium Chloride 0.9% 100 ml @ 100 mls/hr IVPB Q8H [facility] Rx#:[id number] Intake, IV Titration 200 Amount Cefepime 1 gm In Sodium 100 Chloride 0.9% 50 ml @ 100 mls/hr IVPB Q8HR [facility] Rx# :[id number] methylPREDNISolone SOD 100 SUCC 250 mg In Sodium Chloride 0.9% 100 ml @ 100 mls/hr IVPB Q8H [facility] Rx#:[id number] Oral 200 120 Output: Urine 1250 850 Other: Voiding Method Toilet Toilet Toilet # Voids 1 - Exam PHYSICAL EXAMINATION: GENERAL: The patient is alert and oriented x3, not in any acute distress. Well developed, well nourished. HEENT: Pupils are round and equally reacting to light. EOMI. No scleral icterus. No conjunctival pallor. Normocephalic, atraumatic. No pharyngeal erythema. No thyromegaly. CARDIOVASCULAR: S1 and S2 present. No murmurs, rubs, or gallops. PULMONARY: Chest is clear to auscultation, no wheezing or crackles. ABDOMEN: Soft, nontender, nondistended, normoactive bowel sounds. No palpable organomegaly. MUSCULOSKELETAL: No joint swelling or deformity. EXTREMITIES: No cyanosis, clubbing, or pedal edema. NEUROLOGICAL: No syncope and change in her tingling numbness. SKIN: No rashes. - Labs CBC & Chem 7: 01/14/17 04:47 01/14/17 04:47 Labs: Abnormal Lab Results - Last 24 Hours (Table) 01/13/17 01/13/17 01/13/17 Range/Units 16:15 16:51 19:03 WBC (3.8-10.6) k/uL Neutrophils # (1.3-7.7) k/uL Lymphocytes # (1.0-4.8) k/uL Potassium (3.5-5.1) mmol/L Chloride (98-107) mmol/L Carbon Dioxide (22-30) mmol/L Glucose (74-99) mg/dL POC Glucose (mg/dL) 148 H (75-99) mg/dL Plasma Lactic Acid Raf 4.3 H* 6.3 H* (0.7-2.0) mmol/L Magnesium (1.6-2.3) mg/dL Urine Protein (Negative) Urine Glucose (UA) (Negative) Urine Ketones (Negative) 01/13/17 01/13/17 01/13/17 Range/Units 20:51 22:11 22:11 WBC 22.3 H (3.8-10.6) k/uL Neutrophils # 20.8 H (1.3-7.7) k/uL Lymphocytes # 0.9 L (1.0-4.8) k/uL Potassium 3.4 L (3.5-5.1) mmol/L Chloride 109 H (98-107) mmol/L Carbon Dioxide 19 L (22-30) mmol/L Glucose 159 H (74-99) mg/dL POC Glucose (mg/dL) 162 H (75-99) mg/dL Plasma Lactic Acid Raf (0.7-2.0) mmol/L Magnesium (1.6-2.3) mg/dL Urine Protein (Negative) Urine Glucose (UA) (Negative) Urine Ketones (Negative) 01/13/17 01/14/17 01/14/17 Range/Units 22:11 04:47 04:47 WBC 24.9 H (3.8-10.6) k/uL Neutrophils # 22.9 H (1.3-7.7) k/uL Lymphocytes # (1.0-4.8) k/uL Potassium (3.5-5.1) mmol/L Chloride 108 H (98-107) mmol/L Carbon Dioxide 20 L (22-30) mmol/L Glucose 149 H (74-99) mg/dL POC Glucose (mg/dL) (75-99) mg/dL Plasma Lactic Acid Raf 4.2 H* (0.7-2.0) mmol/L Magnesium 2.5 H (1.6-2.3) mg/dL Urine Protein (Negative) Urine Glucose (UA) (Negative) Urine Ketones (Negative) 01/14/17 01/14/17 01/14/17 Range/Units 04:47 09:16 12:15 WBC (3.8-10.6) k/uL Neutrophils # (1.3-7.7) k/uL Lymphocytes # (1.0-4.8) k/uL Potassium (3.5-5.1) mmol/L Chloride (98-107) mmol/L Carbon Dioxide (22-30) mmol/L Glucose (74-99) mg/dL POC Glucose (mg/dL) (75-99) mg/dL Plasma Lactic Acid Raf 2.7 H* 4.9 H* (0.7-2.0) mmol/L Magnesium (1.6-2.3) mg/dL Urine Protein Trace H (Negative) Urine Glucose (UA) 4+ H (Negative) Urine Ketones 1+ H (Negative) 01/14/17 Range/Units 12:18 WBC (3.8-10.6) k/uL Neutrophils # (1.3-7.7) k/uL Lymphocytes # (1.0-4.8) k/uL Potassium (3.5-5.1) mmol/L Chloride (98-107) mmol/L Carbon Dioxide (22-30) mmol/L Glucose (74-99) mg/dL POC Glucose (mg/dL) 142 H (75-99) mg/dL Plasma Lactic Acid Raf (0.7-2.0) mmol/L Magnesium (1.6-2.3) mg/dL Urine Protein (Negative) Urine Glucose (UA) (Negative) Urine Ketones (Negative) Assessment and Plan Plan: #1 focal areas of numbness: Patient's MRA is negative but neurology still believes patient may have multiple sclerosis. Patient on systems steroids. 2 highly elevated lactic acid: Without any significant source of infection further management as discussed in HP3 3 chest pain: Atypical nature rule out acute coronary syndromes. 4 hypertension: Obesity: Counseled was provided Spent about 40 minutes of critical care time in managing the patient
[2017-01-14 17:11] LABS: Glucose,Whole Blood 129 mg/dL (75-99)
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
[2017-01-14 18:17] VITALS: RESP 16
--- NOTE | 2017-01-14 20:23 | P.PN ---
Subjective Principal diagnosis: Right-sided paresthesias of the skin Patient is a 31-year-old female being followed by neurology for right-sided numbness and tingling. Patient has been having numbness and tingling involving her right face and in various locations of the right upper extremity and right lower extremity over the past several weeks. States that her hand and fingers have been numb on the right side and is also having numbness in the distal right lower extremity and occasionally in the right thigh. Patient denies any lateralizing weakness. Patient was treated and was cleared for discharge yesterday when she began having a fever prior to discharge post solumedrol infusion. Patient was seen by ID and recommended further antibiotic treatment. Patient is alert and oriented x3, sitting in a bedside chair and in no acute distress. Patient states that she has begun feeling much better but still has intermittent right sided numbness and tinging of the right UE and LE althought it is much improved since IV infusion. Objective - Vital Signs Vital signs: Vital Signs Temp 98.0 F 01/14/17 15:00 Pulse 97 01/14/17 18:13 Resp 16 01/14/17 18:13 BP 155/82 01/14/17 18:13 Pulse Ox 98 01/14/17 18:13 Intake & Output 01/14/17 01/14/17 01/15/17 06:59 18:59 06:59 Intake Total 1850 820 Output Total 1250 1750 Balance 600 -930 Weight 116.6 kg 116.6 kg Intake: IV 1850 300 Cefepime 1 gm In Sodium 50 Chloride 0.9% 50 ml @ 100 mls/hr IVPB Q8HR JACKEL[facility] Rx# :[id number] Magnesium Sulfate-D5w Pmx 200 1 gm In Dextrose/Water 1 100ml.bag @ 100 mls/hr IVPB Q1H JACKELIN Rx#: [id number] Sodium Chloride 0.9% 1, 1350 300 000 ml @ 150 mls/hr IV . Q6H40M JACKELIN Rx#:[id number] Vancomycin 1,500 mg In 250 Sodium Chloride 0.9% 250 ml @ 125 mls/hr IVPB ONCE ONE Rx#:[id number] Intake, IV Titration 300 Amount Cefepime 1 gm In Sodium 200 Chloride 0.9% 50 ml @ 100 mls/hr IVPB Q8HR JACKELIN Rx# :[id number] methylPREDNISolone SOD 100 SUCC 250 mg In Sodium Chloride 0.9% 100 ml @ 100 mls/hr IVPB Q8H JACKELIN Rx#:[id number] Oral 220 Output: Urine 1250 1750 Other: Voiding Method Toilet Toilet # Voids 1 - Exam Constitutional: AOx3, cooperative HEENT: NC/AT, no facial asymmetry is seen. Throat: Supple, no masses Respiratory: No increased work of breathing Cardiac: Regular rate and Rhythm GI: non tender, non distended Musculoskeletal: Erp Analyst strengths are equal bilaterally 5/5, Lower extremity strengths are equal bilaterally at 5/5. Neurological: CN II-XII in tact, patient was AOx3, speech and language are normal, no unilateralizing weakness, no seizure activity note on physical exam. Sensation was normal. Integementary: no rash, no erythema Psychiatric: mood and affect appropriate - Labs CBC & Chem 7: 01/14/17 04:47 01/14/17 04:47 Labs: Abnormal Lab Results - Last 24 Hours (Table) 01/13/17 01/13/17 01/13/17 Range/Units 20:51 22:11 22:11 WBC 22.3 H (3.8-10.6) k/uL Neutrophils # 20.8 H (1.3-7.7) k/uL Lymphocytes # 0.9 L (1.0-4.8) k/uL Potassium 3.4 L (3.5-5.1) mmol/L Chloride 109 H (98-107) mmol/L Carbon Dioxide 19 L (22-30) mmol/L Glucose 159 H (74-99) mg/dL POC Glucose (mg/dL) 162 H (75-99) mg/dL Plasma Lactic Acid Raf (0.7-2.0) mmol/L Magnesium (1.6-2.3) mg/dL Urine Protein (Negative) Urine Glucose (UA) (Negative) Urine Ketones (Negative) 01/13/17 01/14/17 01/14/17 Range/Units 22:11 04:47 04:47 WBC 24.9 H (3.8-10.6) k/uL Neutrophils # 22.9 H (1.3-7.7) k/uL Lymphocytes # (1.0-4.8) k/uL Potassium (3.5-5.1) mmol/L Chloride 108 H (98-107) mmol/L Carbon Dioxide 20 L (22-30) mmol/L Glucose 149 H (74-99) mg/dL POC Glucose (mg/dL) (75-99) mg/dL Plasma Lactic Acid Raf 4.2 H* (0.7-2.0) mmol/L Magnesium 2.5 H (1.6-2.3) mg/dL Urine Protein (Negative) Urine Glucose (UA) (Negative) Urine Ketones (Negative) 01/14/17 01/14/17 01/14/17 Range/Units 04:47 09:16 12:15 WBC (3.8-10.6) k/uL Neutrophils # (1.3-7.7) k/uL Lymphocytes # (1.0-4.8) k/uL Potassium (3.5-5.1) mmol/L Chloride (98-107) mmol/L Carbon Dioxide (22-30) mmol/L Glucose (74-99) mg/dL POC Glucose (mg/dL) (75-99) mg/dL Plasma Lactic Acid Raf 2.7 H* 4.9 H* (0.7-2.0) mmol/L Magnesium (1.6-2.3) mg/dL Urine Protein Trace H (Negative) Urine Glucose (UA) 4+ H (Negative) Urine Ketones 1+ H (Negative) 01/14/17 01/14/17 Range/Units 12:18 17:10 WBC (3.8-10.6) k/uL Neutrophils # (1.3-7.7) k/uL Lymphocytes # (1.0-4.8) k/uL Potassium (3.5-5.1) mmol/L Chloride (98-107) mmol/L Carbon Dioxide (22-30) mmol/L Glucose (74-99) mg/dL POC Glucose (mg/dL) 142 H 129 H (75-99) mg/dL Plasma Lactic Acid Raf (0.7-2.0) mmol/L Magnesium (1.6-2.3) mg/dL Urine Protein (Negative) Urine Glucose (UA) (Negative) Urine Ketones (Negative) Microbiology - Last 24 Hours (Table) 01/14/17 12:15 Urine Culture - Preliminary Urine,Clean Catch Assessment and Plan (1) Paresthesia of right arm and leg Status: Acute (2) Migraine headache Status: Acute (3) Sleep apnea Status: Acute (4) Depression Status: Acute (5) Anxiety Status: Acute Plan: Patient has completed IV steroid infusion with decreased symptoms in the right side. Patient's sensory deficit on neurological exam has returned almost to baseline. Patient does have a history of similar episode several years ago and does have a positive family history for multiple sclerosis. As noted previously the nonspecific white matter lesion seen on MRI of the brain does not explain her right-sided numbness, further outpatient neurological workup will be needed including spinal fluid evaluation/lumbar puncture but again this can be done in the outpatient setting. Patient was given IV Solu-Medrol 250 mg IV every 8 hours for greater than 24 hours that was completed yesterday. Patient did receive antibiotic therapy for her urinary tract infection today and per ID is making progress and improvement. Status: Neurology will continue to follow on an as needed basis. If the patient is discharged, she should be advised to contact our office within 48 hours of discharge for a follow up in our office in 10-14 days. I discussed the patient's pertinent medical information with Dr. Leone. He agrees with the plan of care as implemented.
[2017-01-14 21:02] LABS: Glucose,Whole Blood 210 mg/dL (75-99)
[2017-01-14] MEDS: ALPRAZolam 0.25 MG TAB PO PRN (21:57)
[2017-01-15] MEDS: CEFEPIME 1 GM in SODIUM CHLORIDE 0.9% 50 ML IVPB SCH ×2 (00:01→09:19)
[2017-01-15] MEDS: HEPARIN SODIUM,PORCINE 5,000 UNIT/ML 1 ML VIAL SQ SCH ×2 (00:12→08:46)
[2017-01-15 00:16] LABS: Glucose,Whole Blood 133 mg/dL (75-99)
[2017-01-15] MEDS: MORPHINE SULFATE 4 MG/ML SYRINGE IVP PRN ×2 (04:47→10:55)
[2017-01-15 05:59] LABS: Glucose,Whole Blood 138 mg/dL (75-99)
[2017-01-15 06:01] LABS: Basophils % (A) 0 %; CH 31.2; CHCM 34.8; Eosinophils % (A) 0 %; HCT 39.8 % (34.0-46.0); HDW 2.47; HGB 13.5 gm/dL (11.4-16.0); Luc # (Auto) 0.08; Luc % (Auto) 0; Lymphocytes # (A) 1.2 k/uL (1.0-4.8); Lymphocytes % (A) 6 %; MCH 30.6 pg (25.0-35.0); MCV 90.1 fL (80.0-100.0); Mean Platelet Volume 6.7; Monocytes # (A) 0.7 k/uL (0-1.0); Monocytes % (A) 3 %; Neutrophils # (A) 19.8 k/uL (1.3-7.7); Neutrophils % (A) 91 %; RBC 4.41 m/uL (3.80-5.40); RDW 12.4 % (11.5-15.5); WBC 21.9 k/uL (3.8-10.6); WBC (Perox) 21.16
[2017-01-15 06:20] LABS: ALT 41 U/L (9-52); AST 19 U/L (14-36); Alkaline Phosphatase 44 U/L (38-126); Anion Gap 10 mmol/L; Blood Urea Nitrogen 18 mg/dL (7-17); Calcium 9.3 mg/dL (8.4-10.2); Carbon Dioxide 25 mmol/L (22-30); Chloride 108 mmol/L (98-107); Glucose 135 mg/dL (74-99); Magnesium 2.4 mg/dL (1.6-2.3); Non-African American GFR(MDRD) >60 (>60 ml/min/1.73 sqM); Potassium 4.4 mmol/L (3.5-5.1); Sodium 143 mmol/L (137-145); Total Bilirubin 0.3 mg/dL (0.2-1.3); Total Protein 6.4 g/dL (6.3-8.2)
[2017-01-15] MEDS: INSULIN LISPRO (humaLOG) 300 UNIT/3 ML VIAL SQ SCH ×2 (06:39→12:19)
[2017-01-15] MEDS ORDERED: PANTOPRAZOLE 40 MG TABLET PO SCH (07:30)
[2017-01-15] MEDS: ASPIRIN 325 MG TAB PO SCH (08:46)
[2017-01-15 11:58] LABS: Glucose,Whole Blood 140 mg/dL (75-99)
[2017-01-15 13:20] VITALS: BP 148/87; PULSE 87; TEMP 97
--- NOTE | 2017-01-15 16:15 | P.DS ---
Providers Date of admission: 01/14/17 14:01 Attending physician: Clarisse Feliciano Consults: 01/11/17 21:35 Consult Physician Routine Consulting Provider: Maricarmen Leone Consult Reason/Comments: paresthesia Do you want consulting provider notified?: Yes, Notify in am 01/13/17 19:52 Consult Physician Stat Consulting Provider: Mireya Moralez Consult Reason/Comments: UTI/ septic Do you want consulting provider notified?: Yes 01/13/17 20:01 Consult Physician Stat Consulting Provider: Ariel Polanco Consult Reason/Comments: ICU transfer Do you want consulting provider notified?: Yes Primary care physician: Physician Nonstaff Hospital Course: Patient came in with tingling and numbness in the patient was discharged Medrol Dosepak yesterdayl as patient had anion gap although patient was initially discharged I did order lactic acid which came back at about 4 later in the day went up to 6 source sepsis is not clear and patient had leukocytosis of 22,000 which may be secondary to the systemic steroids she is on. Although because of significant elevation lactic acid there is a concern of autoimmune hepatitis along with unknown source of sepsis because of which patient was transferred to ICU for close clinical monitoring patient was afebrile. Overnight. Patient lactic acid has come down. Now started going up again. Patient may have had D - lactate or extremely rare case scenario and mitochondrial disorder, considering the significant elevation we will wait for infectious diseases evaluation. Patient was started on vancomycin and cefepime yesterday, vancomycin was discontinued which I believe is appropriate. Septum is being continued. Patient will transfer to regular floor will watch her one more night. If patient doesn't have any other signs or symptoms of sepsis patient will be discharged tomorrow. Her urine is not impressive for urinary tract infection and patient doesn't have any symptoms of UTI. January 15 2017 There is no source of infection that was evident and patient was treated for possible urinary tract infection patient was ordered by infectious disease and I did discuss with infectious disease today and are not regarding and antibiotic patient will be discharged home today patient probably has D lactate elevation. Continue with Medrol Dosepak will follow Dr. Leone as an outpatient #1 focal areas of numbness: Patient's MRI is negative but neurology still believes patient may have multiple sclerosis. Patient on systems steroids. 2 highly elevated lactic acid: Without any significant source of infection further management as discussed above 3 chest pain: Atypical nature rule out acute coronary syndromes. 4 hypertension: Obesity: Counseled was provided Patient Condition at Discharge: Stable Plan - Discharge Summary New Discharge Prescriptions: New methylPREDNISolone Dose Pack [Medrol Dose Pack] 4 mg PO DIRECTED #21 package No Action Hydrochlorothiazide [Hydrodiuril] 25 mg PO DAILY Ergocalciferol [Vitamin D2] 50,000 unit PO TH DULoxetine HCL [Cymbalta] 30 mg PO HS Discharge Medication List DULoxetine HCL [Cymbalta] 30 mg PO HS 01/11/17 [History] Ergocalciferol [Vitamin D2] 50,000 unit PO TH 01/11/17 [History] Hydrochlorothiazide [Hydrodiuril] 25 mg PO DAILY 01/11/17 [History] methylPREDNISolone Dose Pack [Medrol Dose Pack] 4 mg PO DIRECTED #21 package 01/13/17 [Rx] Follow up Appointment(s)/Referral(s): Erin Rico [Other] - 3 Days Maricarmen Leoen MD [STAFF PHYSICIAN] - 1 Week Patient Instructions/Handouts: Multiple Sclerosis (DC) Activity/Diet/Wound Care/Special Instructions: Regular diet. Limit activity until follow up. Fall precautions. May return to work when cleared by primary care drJane Discharge/Stand Alone Forms: Work/School Release Discharge Disposition: HOME SELF-CARE
== END 2017-01-15 14:49 | disposition home or self-care (01) | DRG 91 ==
LOC: EC 18:11 → 6SEL 21:50 → 4MS4W 01-13 12:33 → 6ICU 01-13 21:41 → OBSVTOIN 01-14 14:01 → 6SEL 01-14 17:59
PROVIDERS: ADMIT Internal Medicine; ATTEND Internal Medicine
DX: R20.2 Paresthesia of skin (principal); A41.9 Sepsis, unspecified organism; E87.2 Acidosis; E87.8 Other disorders of electrolyte and fluid balance, not elsewhere classified; E66.01 Morbid (severe) obesity due to excess calories; F32.9 Major depressive disorder, single episode, unspecified; G47.30 Sleep apnea, unspecified; G43.909 Migraine, unspecified, not intractable, without status migrainosus; F41.9 Anxiety disorder, unspecified; E78.1 Pure hyperglyceridemia; F17.200 Nicotine dependence, unspecified, uncomplicated; I10 Essential (primary) hypertension; R07.89 Other chest pain; K75.4 Autoimmune hepatitis; K76.0 Fatty (change of) liver, not elsewhere classified; Z79.899 Other long term (current) drug therapy; Z81.8 Family history of other mental and behavioral disorders; Z82.0 Family history of epilepsy and other diseases of the nervous system; Z82.49 Family history of ischemic heart disease and other diseases of the circulatory system; Z86.14 Personal history of Methicillin resistant Staphylococcus aureus infection; Z86.73 Personal history of transient ischemic attack (TIA), and cerebral infarction without residual deficits; Z98.51 Tubal ligation status; Z71.3 Dietary counseling and surveillance
CPT/HCPCS: 36415; 70450; 70553; 71020; 74177; 80048; 80053; 80061; 80306; 81001; 81003; 82550; 82553; 83036; 83605; 83735; 84100; 84443; 84484; 85025; 85027; 85610; 85730; 87040; 87086; 93005; 93880; 94760; 96360; 99285

== ENCOUNTER 2017-02-06 07:36 | Day surgery (SDC) | payer OTHER ==
[2017-02-02 14:18] VITALS: BMI 37.5
[2017-02-06] MEDS ORDERED: LACTATED RINGERS 1,000 ML IV SCH (07:45)
[2017-02-06 08:04] VITALS: TEMP 98.1
[2017-02-06 08:08] LABS: Glucose,Whole Blood 109 mg/dL (75-99)
[2017-02-06] MEDS ORDERED: LIDOCAINE 1% 20 ML VIAL (10MG/ML) FOR IV START INTRADERMA ONE (08:24)
--- NOTE | 2017-02-06 08:53 | P.PCN ---
Date of Procedure: 02/06/17 Preoperative Diagnosis: Postoperative Diagnosis: Procedure(s) Performed: Implants: Surgeon: Raj Waller Pathology: none sent Condition: stable Disposition: PACU Indications for Procedure: Operative Findings: Description of Procedure: PREOPERATIVE DIAGNOSIS: 1-rule out multiple sclerosis POSTOPERATIVE DIAGNOSIS: same PROCEDURE: 1. Diagnostic lumbar puncture ANESTHESIA: Local with 1% lidocaine; conscious sedation with Versed only EBL: Minimal PROCEDURE INDICATION: The patient with persistent right-sided numbness due to presumed demyelinating disease who presents for diagnostic LP as ordered by Dr. Thompson. No use of blood thinners. PROCEDURE DESCRIPTION / TECHNIQUE: The patient was seen and identified in the preoperative area. Risks, benefits, complications, and alternatives were discussed with the patient, including but not limited to bleeding, infection, nerve damage, allergic reactions to medications, and spinal headache. The patient agreed to proceed with the procedure and signed the consent after all questions were answered. Vital signs were stable. Patient was taken to the procedure room and time out was completed to confirm patient position, procedure, area of pain, and allergies. The patient was placed in the sitting position on procedure table with help from nursing staff. The lumbosacral area was prepped and draped in the usual sterile fashion. Vital signs were closely monitored during the procedure. After localization with 1% lidocaine, a 22-gauge 3.5-inch spinal needle was placed in the L3-L4 interspace. Stylet was removed and clear cerebrospinal fluid was obtained. 15 ml CSF was removed and put into four tubes. COMPLICATIONS: None COMMENTS: None DISPOSITION / PLANS: The patient was placed in a supine position and transferred to the recovery area in a stable condition for observation. There was no evidence of lower extremity motor or sensory deficit after the procedure. Patient was discharged from the recovery room after meeting discharge criteria. Home discharge instructions were given to the patient by the staff. The patient was reexamined prior to discharge and there were no issues. The patient will follow up with her neurologist as scheduled.
[2017-02-06] MEDS ORDERED: IV FLUID CONTINUATION 1,000 ML IV ONE (08:55)
[2017-02-06 08:58] VITALS: RESP 18
[2017-02-06 09:18] VITALS: BP 123/79; PULSE 78
[2017-02-06 09:27] LABS: Glucose,CSF 48 mg/dL (40-70)
[2017-02-06 10:21] LABS: ALT 56 U/L (9-52); AST 28 U/L (14-36)
[2017-02-06 10:27] LABS: Rheumatoid Factor, Qnt <9 IU/mL (<12)
[2017-02-06 10:31] LABS: Appearance,CSF Clear
[2017-02-06 15:46] LABS: Treponemal Ab Non-Reactive (Non-Reactive)
[2017-02-06 17:53] LABS: ANA w/Reflex to Titer NEGATIVE (NEGATIVE); RNP AB Interpretation NEGATIVE (NEGATIVE)
[2017-02-07 10:19] LABS: Lyme IgG/IgM 0.3 Index; Lyme IgG/IgM Interp NEGATIVE (NEGATIVE)
[2017-02-08 14:06] LABS: Immunoglobulin G 769 mg/dL (700 - 1600)
[2017-02-10 09:31] LABS: Lyme Specimen Source Not Provided
== END 2017-02-06 10:07 | disposition home or self-care (01) ==
LOC: ORPAIN 07:36
DX: R20.0 Anesthesia of skin (principal); F32.9 Major depressive disorder, single episode, unspecified; Z79.899 Other long term (current) drug therapy; Z88.5 Allergy status to narcotic agent; Z88.0 Allergy status to penicillin; Z88.2 Allergy status to sulfonamides; Z88.8 Allergy status to other drugs, medicaments and biological substances
CPT/HCPCS: 81025; 87476; 86592; 86235 ×3; 84439; 88108; 84157; 82945; 82040; 82042; 82784; 83916; 82164 ×2; 83873; 84443; 84450; 84460; 85730; 86431; 85613; 89050; 86618; 86780; 86038; 86225; 62270; J2250; 99152

== ENCOUNTER 2017-02-10 23:12 | Observation (INO) | payer OTHER ==
[2017-02-11 01:46] VITALS: BMI 38.8
[2017-02-11] MEDS ORDERED: BUTALB/APAP/CAFF 50-325-40MG TAB PO PRN (01:58)
[2017-02-11] MEDS ORDERED: SODIUM CHLORIDE 0.9% 1,000 ML IV SCH (02:00)
[2017-02-11] MEDS ORDERED: ACETAMINOPHEN TAB 325 MG TAB PO PRN (02:01)
[2017-02-11] MEDS ORDERED: ONDANSETRON 4 MG/2 ML VIAL IVP PRN (02:06)
[2017-02-11] MEDS: BUTALB/APAP/CAFF 50-325-40MG TAB PO PRN ×4 (02:25→21:42)
[2017-02-11] MEDS ORDERED: MORPHINE SULFATE 2 MG/ML SYRINGE IVP PRN (05:44)
[2017-02-11] MEDS ORDERED: KETOROLAC 30 MG/ML 1 ML VIAL IVP SCH (06:00)
[2017-02-11] MEDS: KETOROLAC 30 MG/ML 1 ML VIAL IVP PRN ×3 (06:04→18:18)
[2017-02-11 08:12] LABS: Basophils # (A) 0.1 k/uL (0-0.2); Basophils % (A) 1 %; CH 32.1; CHCM 34.7; Eosinophils # (A) 0.2 k/uL (0-0.7); Eosinophils % (A) 2 %; HCT 41.7 % (34.0-46.0); HDW 2.55; HGB 13.7 gm/dL (11.4-16.0); Luc # (Auto) 0.17; Luc % (Auto) 3; Lymphocytes # (A) 2.1 k/uL (1.0-4.8); Lymphocytes % (A) 29 %; MCH 30.6 pg (25.0-35.0); MCHC 32.9 g/dL (31.0-37.0); MCV 92.9 fL (80.0-100.0); Mean Platelet Volume 6.7; Monocytes # (A) 0.5 k/uL (0-1.0); Monocytes % (A) 8 %; Neutrophils # (A) 4.1 k/uL (1.3-7.7); Neutrophils % (A) 57 %; RBC 4.49 m/uL (3.80-5.40); RDW 13.2 % (11.5-15.5); WBC 7.1 k/uL (3.8-10.6); WBC (Perox) 6.72
[2017-02-11] MEDS: DULoxetine HCL 60 MG CAPSULE.DR PO SCH (08:17)
[2017-02-11] MEDS: ASCORBIC ACID 500 MG TAB PO SCH (08:18)
[2017-02-11 08:29] LABS: Anion Gap 10 mmol/L; Blood Urea Nitrogen 17 mg/dL (7-17); Calcium 9.1 mg/dL (8.4-10.2); Carbon Dioxide 27 mmol/L (22-30); Chloride 104 mmol/L (98-107); Glucose 85 mg/dL (74-99); Non-African American GFR(MDRD) >60 (>60 ml/min/1.73 sqM); Potassium 3.8 mmol/L (3.5-5.1); Sodium 141 mmol/L (137-145)
[2017-02-11] MEDS ORDERED: ERGOCALCIFEROL 50,000 UNIT CAP PO SCH (09:00)
[2017-02-11] MEDS ORDERED: MECLIZINE 25 MG TAB PO PRN (14:37)
--- NOTE | 2017-02-11 14:56 | P.HPIM ---
History of Present Illness Patient is a 32-year-old female came in with severe headache which is better controlled now with I patient had a LP post LP patient had headache consistent with meningeal irritation. Patient was evaluated by anesthesiology they're not recommending a blood patch at this point of time as her pain is better controlled now with the nonsteroidal anti-inflammatory medications. Patient is also complaining of acute onset of vertiginous symptoms patient had an MRI which did not show any central causes for her vertigo which was done pretty recently during her previous hospitalization. Patient appears to have benign push vertigo with some improvement in symptoms with Koko Halspike maneuver and patient was started on meclizine. If patient's symptoms improves with meclizine and tract Toradol patient will be discharged on etodolac and meclizine today are as patient will stay here in the hospital for symptomatically management of her vertigo and meningeal pain from her recent LP. Review of Systems REVIEW OF SYSTEMS: CONSTITUTIONAL: No fever, no malaise, no fatigue. HEENT: No recent visual problems or hearing problems. Denied any sore throat. CARDIOVASCULAR: No chest pain, orthopnea, PND, no palpitations, no syncope. PULMONARY: No shortness of breath, no cough, no hemoptysis. GASTROINTESTINAL: No diarrhea, no nausea, no vomiting, no abdominal pain. Normoactive bowel sounds. NEUROLOGICAL: no weakness, no numbness. She denied any photophobia HEMATOLOGICAL: Denies any bleeding or petechiae. GENITOURINARY: Denies any burning micturition, frequency, or urgency. MUSCULOSKELETAL/RHEUMATOLOGICAL: Denies any joint pain, swelling, or any muscle pain. ENDOCRINE: Denies any polyuria or polydipsia. The rest of the 14-point review of systems is negative. Past Medical History Past Medical History: CVA/TIA, Hypertension, Sleep Apnea/CPAP/BIPAP Additional Past Medical History / Comment(s): Migraines, states was told she most likely has MS - waiting for confirmation thru neuro workup. States had a steroid injection for MS symptoms on 01/31/17. History of Any Multi-Drug Resistant Organisms: MRSA Date of last positivie culture/infection: 2005 MDRO Source:: abd Past Surgical History: Tubal Ligation Additional Past Surgical History / Comment(s): lumbar puncture 02/06/2017 Past Anesthesia/Blood Transfusion Reactions: No Reported Reaction Past Psychological History: Anxiety, Depression Additional Psychological History / Comment(s): Lives with 2 children. One child has cerebal palsy. Smoking Status: Former smoker Past Alcohol Use History: None Reported Additional Past Alcohol Use History / Comment(s): Quit December 2016, using Chantix. Used to smoke 2 packs a day. Past Drug Use History: None Reported - Past Family History Mother Family Medical History: Hyperlipidemia, Hypertension Additional Family Medical History / Comment(s): depression, Patient states family history of MS, states "a couple of uncles have MS." Father Family Medical History: Hyperlipidemia, Hypertension Son(s) Additional Family Medical History / Comment(s): Cerebal palsy Medications and Allergies Home Medications Medication Instructions Recorded Confirmed Type DULoxetine HCL [Cymbalta] 60 mg PO DAILY 01/11/17 02/11/17 History Ergocalciferol [Vitamin D2] 50,000 unit PO SA 01/11/17 02/11/17 History Hydrochlorothiazide [Hydrodiuril] 50 mg PO DAILY 01/11/17 02/11/17 History Ascorbic Acid [Vitamin C] 500 mg PO DAILY 02/02/17 02/11/17 History Allergies Allergy/AdvReac Type Severity Reaction Status Date / Time codeine Allergy Rash/Hives Verified 02/06/17 07:57 metoclopramide [From Reglan] Allergy Rash/Hives Verified 02/06/17 07:57 Penicillins Allergy Rash/Hives Verified 02/06/17 07:57 Sulfa (Sulfonamide Allergy Rash/Hives Verified 02/06/17 07:57 Antibiotics) Physical Exam Vitals: Vital Signs Temp Pulse Resp BP Pulse Ox 02/11/17 07:34 98.2 F 71 16 125/76 97 02/11/17 02:10 77 18 02/11/17 02:02 99 F 77 18 148/76 97 Intake and Output 02/10/17 02/11/17 02/11/17 22:59 06:59 14:59 Intake Total 690 Balance 690 Intake: Oral 690 Other: Voiding Method Toilet Toilet # Voids 2 Weight 112.5 kg PHYSICAL EXAMINATION: GENERAL: The patient is alert and oriented x3, not in any acute distress. Well developed, well nourished. HEENT: Pupils are round and equally reacting to light. EOMI. No scleral icterus. No conjunctival pallor. Normocephalic, atraumatic. No pharyngeal erythema. No thyromegaly. CARDIOVASCULAR: S1 and S2 present. No murmurs, rubs, or gallops. PULMONARY: Chest is clear to auscultation, no wheezing or crackles. ABDOMEN: Soft, nontender, nondistended, normoactive bowel sounds. No palpable organomegaly. MUSCULOSKELETAL: No joint swelling or deformity. EXTREMITIES: No cyanosis, clubbing, or pedal edema. NEUROLOGICAL: Gross neurological examination did not reveal any focal deficits. SKIN: No rashes. Results CBC & Chem 7: 02/11/17 07:25 02/11/17 07:25 Thrombosis Risk Factor Assmnt - Choose All That Apply Each Factor Represents 1 point: Obesity (BMI >25) Thrombosis Risk Factor Assessment Total Risk Factor Score: 1 Thrombosis Risk Factor Assessment Level: Low Risk Assessment and Plan Plan: #1 headache: Secondary to LP and meningeal irritation. Continue with nonsteroidal inflammatory sent plan as mentioned above. #2 benign positional vertigo: Management as mentioned above. #3 questionable history of multiple sclerosis: Patient is undergoing further evaluation with LP as mentioned above for multiple sclerosis and patient doesn' t have any new symptoms for multiple sclerosis. #4 hypertension #5 obesity #6 gastroesophageal reflux disease #7 depression For above-mentioned chronic medical problems patient will be continued on her home medications close clinical monitoring. Patient will be discharged if her symptoms improved including headache and vertigo.
--- NOTE | 2017-02-11 14:57 | P.DS ---
Providers Date of admission: 02/11/17 01:19 Attending physician: Sabine Flynn Consults: 02/11/17 02:02 Consult Physician Routine Consulting Provider: [facility] Consult Reason/Comments: headache since thursday 02/08 after lumbar puncture on monday02/06/2017 Do you want consulting provider notified?: Yes Primary care physician: [facility] Course: Refer to HPI Plan - Discharge Summary New Discharge Prescriptions: New Etodolac [Lodine] 400 mg PO BID PRN #14 tablet PRN Reason: Pain Ranitidine HCl [Zantac] 150 mg PO BID #15 tab Meclizine [Antivert] 25 mg PO TID PRN #20 tab PRN Reason: Vertigo No Action Hydrochlorothiazide [Hydrodiuril] 50 mg PO DAILY Ergocalciferol [Vitamin D2] 50,000 unit PO SA DULoxetine HCL [Cymbalta] 60 mg PO DAILY Ascorbic Acid [Vitamin C] 500 mg PO DAILY Discharge Medication List DULoxetine HCL [Cymbalta] 60 mg PO DAILY 01/11/17 [History] Ergocalciferol [Vitamin D2] 50,000 unit PO SA 01/11/17 [History] Hydrochlorothiazide [Hydrodiuril] 50 mg PO DAILY 01/11/17 [History] Ascorbic Acid [Vitamin C] 500 mg PO DAILY 02/02/17 [History] Etodolac [Lodine] 400 mg PO BID PRN #14 tablet 02/11/17 [Rx] Meclizine [Antivert] 25 mg PO TID PRN #20 tab 02/11/17 [Rx] Ranitidine HCl [Zantac] 150 mg PO BID #15 tab 02/11/17 [Rx]
[2017-02-11] MEDS: FAMOTIDINE 20 MG TAB PO SCH ×2 (15:44→19:49)
[2017-02-12] MEDS: KETOROLAC 30 MG/ML 1 ML VIAL IVP PRN ×2 (01:50→19:31)
[2017-02-12] MEDS: BUTALB/APAP/CAFF 50-325-40MG TAB PO PRN (06:29)
[2017-02-12] MEDS: DULoxetine HCL 60 MG CAPSULE.DR PO SCH (09:27)
[2017-02-12] MEDS: FAMOTIDINE 20 MG TAB PO SCH ×2 (09:27→19:31)
[2017-02-12] MEDS: ASCORBIC ACID 500 MG TAB PO SCH (09:27)
--- NOTE | 2017-02-12 15:33 | P.PN ---
Subjective Patient was admitted for post-LP headache which improved at this point of time. Patient in the past had concern for multiple cirrhosis because of which patient underwent LP. Patient was also complaining of vertigo which is did improve a little bit today. But patient's today started complaining of tingling and numbness in the right side of the body. Including the right arm and right face predominantly. Although it was not proven that patient has MS but still during her last hospitalization neurology had concerns about multiple sclerosis. Because of that are good and consult neurology. If cleared by neurology patient will be discharged today. Patient denied any cough, chest pain, dysuria, nausea vomiting. Objective - Vital Signs Vital signs: Vital Signs Temp 98.1 F 02/12/17 07:10 Pulse 74 02/12/17 07:10 Resp 16 02/12/17 07:10 BP 137/85 02/12/17 07:10 Pulse Ox 98 02/12/17 07:10 Intake & Output 02/11/17 02/12/17 02/12/17 18:59 06:59 18:59 Intake Total 690 525 Balance 690 525 Intake: Oral 690 525 Other: Voiding Method Toilet Toilet Toilet # Voids 1 2 - Exam PHYSICAL EXAMINATION: GENERAL: The patient is alert and oriented x3, not in any acute distress. Well developed, well nourished. HEENT: Pupils are round and equally reacting to light. EOMI. No scleral icterus. No conjunctival pallor. Normocephalic, atraumatic. No pharyngeal erythema. No thyromegaly. CARDIOVASCULAR: S1 and S2 present. No murmurs, rubs, or gallops. PULMONARY: Chest is clear to auscultation, no wheezing or crackles. ABDOMEN: Soft, nontender, nondistended, normoactive bowel sounds. No palpable organomegaly. MUSCULOSKELETAL: No joint swelling or deformity. EXTREMITIES: No cyanosis, clubbing, or pedal edema. NEUROLOGICAL: Gross neurological examination did not reveal any focal deficits. Sensory system was not examined SKIN: No rashes. - Labs CBC & Chem 7: 02/11/17 07:25 02/11/17 07:25 Assessment and Plan Plan: #1 headache: Secondary to LP and meningeal irritation. Continue with nonsteroidal inflammatory upon discharge #2 benign positional vertigo: Meclizine upon discharge #3 questionable history of multiple sclerosis: She is comparing of numbness on the right side and neurology will be consulted. #4 hypertension #5 obesity #6 gastroesophageal reflux disease #7 depression For above-mentioned chronic medical problems patient will be continued on her home medications close clinical monitoring. We will be discharged if cleared by neurology.
--- NOTE | 2017-02-12 15:34 | P.DS ---
Providers Date of admission: 02/11/17 01:19 Attending physician: Sabine Flynn Consults: 02/11/17 02:02 Consult Physician Routine Consulting Provider: [facility] Consult Reason/Comments: headache since thursday 02/08 after lumbar puncture on monday02/06/2017 Do you want consulting provider notified?: Yes 02/12/17 13:35 Consult Physician Routine Consulting Provider: Maricarmen Leone Consult Reason/Comments: left sided numbness/generalized weakness Do you want consulting provider notified?: Yes Primary care physician: Juliocesar Lopez [facility] Course: Referred to my progress note from today. Plan - Discharge Summary New Discharge Prescriptions: New Etodolac [Lodine] 400 mg PO BID PRN #14 tablet PRN Reason: Pain Ranitidine HCl [Zantac] 150 mg PO BID #15 tab Meclizine [Antivert] 25 mg PO TID PRN #20 tab PRN Reason: Vertigo No Action Hydrochlorothiazide [Hydrodiuril] 50 mg PO DAILY Ergocalciferol [Vitamin D2] 50,000 unit PO SA DULoxetine HCL [Cymbalta] 60 mg PO DAILY Ascorbic Acid [Vitamin C] 500 mg PO DAILY Discharge Medication List DULoxetine HCL [Cymbalta] 60 mg PO DAILY 01/11/17 [History] Ergocalciferol [Vitamin D2] 50,000 unit PO SA 01/11/17 [History] Hydrochlorothiazide [Hydrodiuril] 50 mg PO DAILY 01/11/17 [History] Ascorbic Acid [Vitamin C] 500 mg PO DAILY 02/02/17 [History] Etodolac [Lodine] 400 mg PO BID PRN #14 tablet 02/11/17 [Rx] Meclizine [Antivert] 25 mg PO TID PRN #20 tab 02/11/17 [Rx] Ranitidine HCl [Zantac] 150 mg PO BID #15 tab 02/11/17 [Rx]
--- NOTE | 2017-02-12 17:37 | P.CNNES ---
History of Present Illness Consult date: 02/12/17 Requesting physician: Vanessa Castañeda Reason for Consult: Left-sided numbness/weakness History of Present Illness: Patient is a pleasant 32-year-old female who is being evaluated by the neurology service per the request of Dr. Castañeda on 02/12/2017 for left- sided numbness and weakness. Patient states she had been having numbness and tingling involving her right face and right upper and lower extremity for the past 3 months. Patient states that since yesterday she has started to have numbness and tingling on her left side as well as left-sided weakness. Patient does state some vision changes in the right eye. Patient was recently admitted a month ago regarding these same complaints. Patient had a carotid Doppler done then which showed no hemodynamically significant stenosis. Patient had a computed tomography scan of the brain which was normal. MRI of the brain done last admission showed nonspecific white matter changes with a single solitary nonspecific white matter lesion involving the right posterior frontal lobe with no abnormal contrast enhancement. This finding was seen on the films not in the report. Patient had presented this admission with complaints of headache following a lumbar puncture. Headache has since subsided. No need for blood patch was warranted. Patient was afebrile on admission with a blood pressure of 149/85. Laboratory workup was unremarkable. At the time of my evaluation, patient's resting comfortably in bed and appears to be in no acute distress. Review of Systems REVIEW OF SYSTEMS: Otherwise unremarkable and noncontributory. Past Medical History Past Medical History: CVA/TIA, Hypertension, Sleep Apnea/CPAP/BIPAP Additional Past Medical History / Comment(s): Migraines, states was told she most likely has MS - waiting for confirmation thru neuro workup. had a steroid injection for MS symptoms on 01/31/17. History of Any Multi-Drug Resistant Organisms: MRSA Date of last positivie culture/infection: 2005 MDRO Source:: abd Past Surgical History: Tubal Ligation Additional Past Surgical History / Comment(s): lumbar puncture 02/06/2017 Past Anesthesia/Blood Transfusion Reactions: No Reported Reaction Past Psychological History: Anxiety, Depression Additional Psychological History / Comment(s): Lives with 2 children. One child has cerebal palsy. Smoking Status: Former smoker Past Alcohol Use History: None Reported Additional Past Alcohol Use History / Comment(s): Quit December 2016, using Chantix. Used to smoke 2 packs a day. Past Drug Use History: None Reported - Past Family History Mother Family Medical History: Hyperlipidemia, Hypertension Additional Family Medical History / Comment(s): depression, Patient states family history of MS, states "a couple of uncles have MS." Father Family Medical History: Hyperlipidemia, Hypertension Son(s) Additional Family Medical History / Comment(s): Cerebal palsy Medications and Allergies Home Medications Medication Instructions Recorded Confirmed Type DULoxetine HCL [Cymbalta] 60 mg PO DAILY 01/11/17 02/11/17 History Ergocalciferol [Vitamin D2] 50,000 unit PO SA 01/11/17 02/11/17 History Hydrochlorothiazide [Hydrodiuril] 50 mg PO DAILY 01/11/17 02/11/17 History Ascorbic Acid [Vitamin C] 500 mg PO DAILY 02/02/17 02/11/17 History Allergies Allergy/AdvReac Type Severity Reaction Status Date / Time codeine Allergy Rash/Hives Verified 02/06/17 07:57 metoclopramide [From Reglan] Allergy Rash/Hives Verified 02/06/17 07:57 Penicillins Allergy Rash/Hives Verified 02/06/17 07:57 Sulfa (Sulfonamide Allergy Rash/Hives Verified 02/06/17 07:57 Antibiotics) Physical Examination - Vital Signs Vital Signs: Vital Signs Temp Pulse Resp BP Pulse Ox 02/12/17 15:00 98.5 F 66 16 133/75 95 02/12/17 07:10 98.1 F 74 16 137/85 98 02/12/17 06:10 98 F 67 18 125/74 99 02/12/17 03:23 18 02/11/17 23:11 18 02/11/17 19:41 18 02/11/17 19:39 98.7 F 81 18 149/85 98 Intake and Output 02/12/17 02/12/17 02/12/17 06:59 14:59 22:59 Intake Total 525 Balance 525 Intake: Oral 525 Other: Voiding Method Toilet Toilet Toilet # Voids 2 1 PHYSICAL EXAM: GENERAL APPEARANCE: Patient is a well-developed, female who appears to be in no acute distress. HEENT: Normocephalic, atraumatic, no facial asymmetry is seen. Neck is supple with no masses felt. CARDIOVASCULAR: Regular rate and rhythm. ABDOMEN: Nontender, nondistended. EXTREMITIES: Show no edema or clubbing. NEUROLOGICAL EXAM: Patient is awake, alert, and oriented 3. Speech and language are normal. Strength is 4+/5 in left lower extremity and full in all other extremities. Sensory exam showed diminished to light touch sensation on the left upper and lower extremity as compared to the right. Cranial nerve testing showed diminished light touch sensation on left side of the face as compared to the right. No pronator drift is seen. No tremors or seizure-like activity is noted. Results - Laboratory Findings CBC and BMP: 02/11/17 07:25 02/11/17 07:25 Assessment and Plan Plan: Impression: 1. Left-sided numbness and tingling 2. Nonspecific white matter changes on the MRI 3. History of right-sided numbness and tingling 4. Hypertension Recommendations: Patient continues to have numbness and tingling involving the left side of her body and has a sensory deficit on neurological examination. Patient does have family history of multiple sclerosis. Patient recently underwent lumbar puncture which was negative for oligoclonal bands in the cerebral spinal fluid. Patient states she had good resolution of symptoms when she underwent IV steroid therapy prior. I will start her on Solu-Medrol 250 mg IV every 8 hours and will monitor for improvement over the next 24 hours. If patient is to be discharged, [facility] Solu-Medrol 1000 mg daily 3 days. She is to follow with her neurologist upon discharge. I recommend a physical therapy evaluation. Continue neurological checks. I will continue to follow with you. Further recommendations to follow. Thank you for allowing me to participate in the care of your patient. If you have any questions, please feel free to contact me. I performed an examination of the patient and discussed the management with the BIOPROCESS ENGINEER. I have reviewed the BIOPROCESS ENGINEER notes and agree with the findings and plan of care.
[2017-02-13] MEDS: KETOROLAC 30 MG/ML 1 ML VIAL IVP PRN ×2 (04:37→10:34)
[2017-02-13] MEDS: ASCORBIC ACID 500 MG TAB PO SCH (08:23)
[2017-02-13] MEDS: FAMOTIDINE 20 MG TAB PO SCH ×2 (08:23→20:32)
[2017-02-13] MEDS: DULoxetine HCL 60 MG CAPSULE.DR PO SCH (08:23)
[2017-02-13] MEDS: BUTALB/APAP/CAFF 50-325-40MG TAB PO PRN ×2 (13:46→20:31)
--- NOTE | 2017-02-13 16:02 | P.PN ---
Subjective Principal diagnosis: Patient is a pleasant 32-year-old female who is being followed by the neurology service for left-sided numbness and weakness. Patient states she had episodes in the past of numbness tingling on the right side of her face as well as the right upper and lower extremities. Patient had IV steroids which helped alleviate symptoms. Patient's MRI report did not reveal any white matter changes however, reviewing the images there are a few white matter changes periventricular. It was recommended at last visit that she follow-up for further testing for possible demyelinating disease. Patient did follow up and had lumbar puncture done to evaluate for possible demyelinating disease. Patient presented back to the hospital with spinal headache. This has since resolved in no blood patch was required. During her admission, patient complains of increasing numbness and tingling to the left face and left upper and lower extremity. Patient does have sensory deficit on exam. I did start patient on IV steroid therapy. Patient reports this steroid seem to be helping. At the time of my evaluation, patient is ambulating to and from the bathroom without difficulty. Patient appears to be in no acute distress. Objective - Vital Signs Vital signs: Vital Signs Temp 98.2 F 02/13/17 11:57 Pulse 102 H 02/13/17 12:00 Resp 16 02/13/17 12:00 BP 148/70 02/13/17 11:57 Pulse Ox 95 02/13/17 11:57 Intake & Output 02/12/17 02/13/17 02/13/17 18:59 06:59 18:59 Intake Total 525 Balance 525 Weight 112.5 kg Intake: Oral 525 Other: Voiding Method Toilet Toilet Toilet # Voids 1 3 1 - Exam PHYSICAL EXAM: GENERAL APPEARANCE: Patient is a well-developed, female who appears to be in no acute distress. HEENT: Normocephalic, atraumatic, no facial asymmetry is seen. Neck is supple with no masses felt. CARDIOVASCULAR: Regular rate and rhythm. ABDOMEN: Nontender, nondistended. EXTREMITIES: Show no edema or clubbing. NEUROLOGICAL EXAM: Patient is awake, alert, and oriented 3. Speech and language are normal. Strength is full on right upper and lower extremity. Strength is 5-/5 in left upper and lower extremity. Sensory deficit noted to left upper and lower extremity. As well as left facial numbness. No facial asymmetry seen on cranial nerve testing. No seizures or tremors noted. - Labs CBC & Chem 7: 02/11/17 07:25 02/11/17 07:25 Assessment and Plan Plan: Impression: 1. Left-sided numbness and tingling 2. Nonspecific white matter changes on the MRI 3. History of right-sided numbness and tingling 4. Hypertension Recommendations: Patient continues to have numbness and tingling involving the left side of her body and has a sensory deficit on neurological examination. Patient does have family history of multiple sclerosis. Patient recently underwent lumbar puncture which was negative for oligoclonal bands in the cerebral spinal fluid. Patient states she had good resolution of symptoms when she underwent IV steroid therapy prior. I will start her on Solu-Medrol 250 mg IV every 8 hours and will monitor for improvement over the next 24 hours. If patient is to be discharged, patient can follow up in the [facility] for IV Solu-Medrol 1000 mg daily 2 days. She is to follow with her neurologist upon discharge. Patient is stable from a neurological standpoint for discharge. Continue neurological checks. I will continue to follow with you on an as- needed basis. Feel free to call with any questions or concerns. I performed an examination of the patient and discussed the management with the INTERMEDIATE ACCOUNTANT. I have reviewed the INTERMEDIATE ACCOUNTANT notes and agree with the findings and plan of care.
--- NOTE | 2017-02-14 01:29 | P.PN ---
Subjective Principal diagnosis: Headache and blackouts 02/12/17 Patient was admitted for post-LP headache which improved at this point of time. Patient in the past had concern for multiple sclerosis because of which patient underwent LP. Patient was also complaining of vertigo which is did improve a little bit . But patient's today started complaining of tingling and numbness in the right side of the body. Including the right arm and right face predominantly. Although it was not proven that patient has MS but still during her last hospitalization neurology had concerns about multiple sclerosis. Because of that are good and consult neurology. If cleared by neurology patient will be discharged today. On 02/13/2017 Patient says that her headache is improved but she still having blackouts. No weakness noted today. Patient is being continued on IV steroids for 3 days as per neurology and outpatient follow-up for further workup for suspected multiple sclerosis. Patient says that she does not have transportation to go home Patient denied any cough, chest pain, dysuria, nausea vomiting. Objective - Vital Signs Vital signs: Vital Signs Temp 98.2 F 02/13/17 11:57 Pulse 102 H 02/13/17 16:00 Resp 16 02/13/17 16:00 BP 148/70 02/13/17 11:57 Pulse Ox 95 02/13/17 11:57 Intake & Output 02/13/17 02/13/17 02/14/17 06:59 18:59 06:59 Intake Total 240 Balance 240 Weight 112.5 kg Intake: Oral 240 Other: Voiding Method Toilet Toilet # Voids 3 2 - Exam GENERAL: The patient is alert and oriented x3, not in any acute distress. Well developed, well nourished. HEENT: Pupils are round and equally reacting to light. EOMI. No scleral icterus. No conjunctival pallor. Normocephalic, atraumatic. No pharyngeal erythema. No thyromegaly. CARDIOVASCULAR: S1 and S2 present. No murmurs, rubs, or gallops. PULMONARY: Chest is clear to auscultation, no wheezing or crackles. ABDOMEN: Soft, nontender, nondistended, normoactive bowel sounds. No palpable organomegaly. MUSCULOSKELETAL: No joint swelling or deformity. EXTREMITIES: No cyanosis, clubbing, or pedal edema. NEUROLOGICAL: Gross neurological examination did not reveal any focal deficits. Sensory system was not examined SKIN: No rashes. - Labs CBC & Chem 7: 02/11/17 07:25 02/11/17 07:25 Assessment and Plan Plan: Plan: #1 headache: Secondary to LP and meningeal irritation. Continue with nonsteroidal inflammatory upon discharge #2 benign positional vertigo: Meclizine upon discharge #3 questionable history of multiple sclerosis: She is complaining of numbness on the right side and neurology was consulted. #4 hypertension #5 obesity #6 gastroesophageal reflux disease #7 depression Plan: Patient will be continued on IV Solu-Medrol 1 g daily for 3 days. Which can be done at [facility] as per neurology per the patient says that she does not have any transportation. Patient should not drive and at least for 6 months symptom-free. Anticipate discharge home tomorrow and follow with neurology clinic for further evaluation of multiple sclerosis. Time with Patient: Greater than 30
[2017-02-14 07:56] VITALS: RESP 18
[2017-02-14] MEDS: FAMOTIDINE 20 MG TAB PO SCH (09:10)
[2017-02-14] MEDS: DULoxetine HCL 60 MG CAPSULE.DR PO SCH (09:10)
[2017-02-14] MEDS: ASCORBIC ACID 500 MG TAB PO SCH (09:10)
[2017-02-14 15:43] VITALS: BP 164/81; PULSE 98; TEMP 98.4
--- NOTE | 2017-02-15 00:49 | P.DS ---
Providers Date of admission: 02/11/17 01:19 Expected date of discharge: 02/14/17 Attending physician: Sabine Flynn Consults: 02/11/17 02:02 Consult Physician Routine Consulting Provider: [facility] Consult Reason/Comments: headache since thursday 02/08 after lumbar puncture on monday02/06/2017 Do you want consulting provider notified?: Yes 02/12/17 13:35 Consult Physician Routine Consulting Provider: Maricarmen Leone Consult Reason/Comments: left sided numbness/generalized weakness Do you want consulting provider notified?: Yes Primary care physician: Juliocesar Hoover Hospital Course: Discharge diagnosis #1 headache: Secondary to LP and meningeal irritation. Resolving now #2 benign positional vertigo: Resolved. Meclizine when necessary upon discharge #3 questionable history of multiple sclerosis: She is complaining of numbness on the right side and neurology was consulted. Patient was given dose of Solu- Medrol 1 g daily for 3 days while in the hospital. Neurology recommended outpatient follow-up for further workup. #4 hypertension #5 obesity #6 gastroesophageal reflux disease #7 depression Hospital course Patient was admitted for post-LP headache which improved at this point of time. Patient in the past had concern for multiple sclerosis because of which patient underwent LP. Patient was also complaining of vertigo which is did improve a little bit . But patient's today started complaining of tingling and numbness in the right side of the body. Including the right arm and right face predominantly. Although it was not proven that patient has MS but still during her last hospitalization neurology had concerns about multiple sclerosis. Because of that are good and consult neurology. If cleared by neurology patient will be discharged today. On 02/13/2017 Patient says that her headache is improved but she still having blackouts. No weakness noted today. Patient is being continued on IV steroids for 3 days as per neurology and outpatient follow-up for further workup for suspected multiple sclerosis. Patient says that she does not have transportation to go home 02/14/2017 Patient denied any weakness or blurry vision. No complaints of headache or dizziness. Patient did complain of some chest pain but which is musculoskeletal worsens with deep palpation. Patient is being discharged home today and follow with neurology clinic for further workup for multiple sclerosis. Patient denied any cough, chest pain, dysuria, nausea vomiting. Patient Condition at Discharge: Stable Plan - Discharge Summary New Discharge Prescriptions: New Etodolac [Lodine] 400 mg PO BID PRN #14 tablet PRN Reason: Pain Ranitidine HCl [Zantac] 150 mg PO BID #15 tab Meclizine [Antivert] 25 mg PO TID PRN #20 tab PRN Reason: Vertigo Hydrochlorothiazide [Hydrodiuril] 50 mg PO DAILY #30 tab Continue Ergocalciferol [Vitamin D2 (DRISDOL)] 50,000 unit PO SA DULoxetine HCL [Cymbalta] 60 mg PO DAILY Ascorbic Acid [Vitamin C] 500 mg PO DAILY Discontinued Hydrochlorothiazide [Hydrodiuril] 50 mg PO DAILY Discharge Medication List DULoxetine HCL [Cymbalta] 60 mg PO DAILY 01/11/17 [History] Ergocalciferol [Vitamin D2 (DRISDOL)] 50,000 unit PO SA 01/11/17 [History] Ascorbic Acid [Vitamin C] 500 mg PO DAILY 02/02/17 [History] Etodolac [Lodine] 400 mg PO BID PRN #14 tablet 02/11/17 [Rx] Meclizine [Antivert] 25 mg PO TID PRN #20 tab 02/11/17 [Rx] Ranitidine HCl [Zantac] 150 mg PO BID #15 tab 02/11/17 [Rx] Hydrochlorothiazide [Hydrodiuril] 50 mg PO DAILY #30 tab 02/13/17 [Rx] Patient Instructions/Handouts: Migraine Headache (GEN) Discharge Disposition: HOME SELF-CARE
== END 2017-02-14 16:31 | disposition home or self-care (01) ==
LOC: 3OBS 02-11 01:19
PROVIDERS: ADMIT Hospitalist; ATTEND Hospitalist
DX: R51 Headache (principal); H81.10 Benign paroxysmal vertigo, unspecified ear; R20.2 Paresthesia of skin; R20.0 Anesthesia of skin; I10 Essential (primary) hypertension; E66.9 Obesity, unspecified; Z68.38 Body mass index [BMI] 38.0-38.9, adult; K21.9 Gastro-esophageal reflux disease without esophagitis; R07.89 Other chest pain; R53.1 Weakness; G47.30 Sleep apnea, unspecified; F32.9 Major depressive disorder, single episode, unspecified; F41.9 Anxiety disorder, unspecified; Z99.89 Dependence on other enabling machines and devices; Z86.73 Personal history of transient ischemic attack (TIA), and cerebral infarction without residual deficits; Z86.14 Personal history of Methicillin resistant Staphylococcus aureus infection; F17.200 Nicotine dependence, unspecified, uncomplicated; Z82.49 Family history of ischemic heart disease and other diseases of the circulatory system; Z79.899 Other long term (current) drug therapy; Z88.5 Allergy status to narcotic agent; Z88.8 Allergy status to other drugs, medicaments and biological substances; Z88.0 Allergy status to penicillin; Z88.2 Allergy status to sulfonamides; Z82.0 Family history of epilepsy and other diseases of the nervous system
CPT/HCPCS: 96365; 96366 ×2; 96375 ×2; 96376 ×3; 97162; 80048; 85025; G0378 ×4; G0379; J2930 ×3; J1885 ×3; J2270

== ENCOUNTER 2017-08-23 18:03 | Observation (INO) | payer OTHER ==
[2017-08-23] MEDS ORDERED: HYDROcodone/APAP 5-325MG 1 EACH TAB PO PRN (22:04)
[2017-08-23] MEDS ORDERED: ACETAMINOPHEN IV (For NPO) 1,000 MG in EMPTY BAG 1 BAG IVPB PRN (22:05)
--- NOTE | 2017-08-24 02:55 | HP ---
HISTORY AND PHYSICAL CHIEF COMPLAINT: Headaches. HISTORY OF PRESENT ILLNESS: This 32-year-old woman with a past medical history of multiple medical issues including significant migraines since age of 2, history of benign positional vertigo, questionable history of multiple sclerosis, hypertension, obesity, GERD, depression being followed by primary physician elsewhere, presented to [facility] with complaints of headache. Headache was mainly situated on both sides of the front of the headache and because of lack of improvement the patient was referred to [facility] direct admission at this time. The patient had multiple evaluations previously. Patient also has seen Neurology and Pain Management also and MRI done last year did not show any acute abnormality. There is no history of fever, rigors or chills. No history of loss of consciousness at this time. The patient also complaining of numbness of the right hand and also right side of the body. PAST MEDICAL HISTORY: History of migraine, history of CVA, TIA, history of hypertension, history of MRSA, history of tubal ligation, anxiety, depression. MEDICATIONS: Prior to admission include home medications are: 1. Norvasc 5 mg q.h.s. 2. Imdur 20 mg p.o. b.i.d. ALLERGIES: ARE CODEINE , METOPROLOL, PENICILLIN, SULFA. FAMILY HISTORY: History of hypertension, hyperlipidemia, depression and MS. SOCIAL HISTORY: Previous history of smoking. No history of current smoking or alcohol intake. REVIEW OF SYSTEMS: ENT: As mentioned earlier. CARDIOVASCULAR: No angina. GI no nausea or vomiting. : No dysuria. NERVOUS SYSTEM: No numbness or weakness. Allergy/Immunology: No asthma or hayfever. Musculoskeletal: As mentioned earlier. Hematology/Oncology: No anemia. Endocrine: No history of diabetes or hypothyroidism. Constitutional: As mentioned earlier. Rheumatology: Negative. Dermatology: Negative. Psychiatric: As mentioned earlier. PHYSICAL EXAM: The patient is alert, oriented x3. The patient has severe photophobia. Pulse is 80, blood pressure 120/90, respiration 20, temperature normal. HEENT: Conjunctivae normal. Oral mucosa moist. Neck is no jugular venous distention. No carotid bruit. No lymph node enlargement. Cardiovascular S1-S2. No S3, no S4. Respiratory: Breath sounds diminished in the suspicion bases. No rhonchi and no crackles. ABDOMEN: Soft, nontender. No mass palpable. Legs no edema. No swelling. Nervous system: Higher functions as mentioned earlier. Moves all 4 limbs. No focal motor or sensory deficits. Lymphatics: No lymph nodes palpable in the neck, axillae or groin. Skin: No ulcer, rash or bleeding. No signs of cerebellar dysfunction. Lymphatics: No lymph nodes palpable in the neck, axillae or groin. JOINTS: No active deforming arthropathy in the joints. LABS: EKG reviewed. CT scan did not show any acute abnormality. ASSESSMENT: 1. Severe headache with failure of outpatient treatment with migraine cephalalgia, possibly. 2. Numbness of the right side of the body. Rule out migraine symptoms. 3. Rule out transient ischemic attack. 4. History of cerebrovascular accident, transient ischemic attack. 5. Sleep apnea. 6. History of hypertension. 7. History of MS workup. 8. History of MRSA. 9. History of tubal ligation. 10.Anxiety, depression. 11.Remote history of nicotine dependence. RECOMMENDATIONS AND DISCUSSION: In this 32-year-old woman who presented with multiple complex medical issues, we will monitor the patient closely, continue the current medications, management and symptomatic treatment. Otherwise at this time, DVT prophylaxis. Symptomatic treatment for the migraine. Otherwise I would recommend a neurology consultation. Basic labs, IV fluids. Guarded prognosis because of multiple complex medical issues. Further recommendations to follow. MMODL / IJN: [id number] /
[2017-08-24 06:31] LABS: Basophils # (A) 0.1 k/uL (0-0.2); Basophils % (A) 1 %; Eosinophils % (A) 0 %; HGB 13.3 gm/dL (11.4-16.0); Lymphocytes # (A) 2.9 k/uL (1.0-4.8); Lymphocytes % (A) 34 %; MCH 29.7 pg (25.0-35.0); MCHC 32.5 g/dL (31.0-37.0); MCV 91.3 fL (80.0-100.0); Mean Platelet Volume 6.4; Monocytes # (A) 0.8 k/uL (0-1.0); Monocytes % (A) 9 %; Neutrophils # (A) 4.5 k/uL (1.3-7.7); Neutrophils % (A) 54 %; Platelet Count 314 k/uL (150-450); RBC 4.49 m/uL (3.80-5.40); RDW 11.6 % (11.5-15.5); WBC 8.5 k/uL (3.8-10.6)
[2017-08-24] MEDS: amLODIPine 5 MG TAB PO SCH ×2 (06:41→20:12)
[2017-08-24] MEDS: PROPRANOLOL 20 MG TAB PO SCH ×3 (06:41→20:12)
[2017-08-24 06:43] LABS: Anion Gap 10 mmol/L; Blood Urea Nitrogen 18 mg/dL (7-17); Carbon Dioxide 29 mmol/L (22-30); Chloride 103 mmol/L (98-107); Cholesterol 171 mg/dL (<200); Glucose 83 mg/dL (74-99); HDL Cholesterol 46 mg/dL (40-60); LDL Cholesterol,Calculated 104 mg/dL (0-99); Potassium 3.7 mmol/L (3.5-5.1); Sodium 142 mmol/L (137-145); Triglycerides 106 mg/dL (<150)
[2017-08-24 06:59] VITALS: BMI 42.1
[2017-08-24] MEDS: SODIUM CHLORIDE 0.9% 1,000 ML IV SCH ×3 (07:05→20:12)
[2017-08-24] MEDS: PANTOPRAZOLE 40 MG/10 ML VIAL IVP SCH (09:08)
[2017-08-24] MEDS: HEPARIN SODIUM,PORCINE 5,000 UNIT/ML 1 ML VIAL SQ SCH ×3 (09:08→20:12)
[2017-08-24] MEDS: ASPIRIN 81 MG PO SCH (09:08)
[2017-08-24] MEDS ORDERED: LORazepam 2 MG/ML INJ IV STA (16:15)
--- NOTE | 2017-08-24 17:17 | PN ---
PROGRESS NOTE DATE OF SERVICE: 08/24/2017 This 32-year-old woman is admitted with recurrent headaches and migraine cephalalgia is being closely monitored. Dr. Leone's evaluation in progress. No chest pain. No palpitations. No fever. EXAM: Alert and oriented x3. The pulse is 78, blood pressure 141/82, respiration 12, temperature 97.1, pulse ox 98% on room air. HEENT: Conjunctivae normal. Neck is no jugular venous distention. Cardiovascular: S1, S2 muffled. Respirations: Breath sounds diminished in the bases. No rhonchi and no crackles. Abdomen is soft, nontender. No mass palpable. Legs are no edema, no swelling. Central nervous system: No focal deficits. LABS: CBC, CMP within normal limits. ASSESSMENT: 1. Severe headache with failure of outpatient treatment, migraines cephalgia, possibly. 2. Numbness of the right side of the body, rule out migraine symptoms. 3. Rule out transient ischemic attack. 4. History of cerebrovascular accident, transient ischemic attack. 5. History of sleep apnea. 6. History of hysterectomy. 7. History of MS workup. 8. History of MRSA. 9. History of tubal ligation. 10.Anxiety, depression. 11.Remote history of nicotine dependence. RECOMMENDATIONS AND DISCUSSION: Recommend to continue current medications, management and symptomatic treatment. Last year the patient underwent a brain MRI. I would recommend repeat MRI and closely follow with Neurology. Guarded prognosis. Further recommendations to follow. MMODL / IJN: [id number] /
[2017-08-24] MEDS: VALPROATE SODIUM 500 MG in SODIUM CHLORIDE 0.9% 50 ML IVPB SCH (20:12)
--- NOTE | 2017-08-24 20:53 | MR ---
EXAMINATION TYPE: MR brain wo con DATE OF EXAM: 08/24/2017 HISTORY: Headaches, numbness. Migraines, stroke, multiple sclerosis? TECHNIQUE: Departmental protocol with multiplanar, multisequence MRI sequences of including diffusion weighted imaging. COMPARISON: MRI 01/12/2017 FINDINGS: There is no restricted diffusion to suggest acute or subacute infarction. There is no mass or mass effect. No evidence of hemorrhage. No periventricular lesions or other white matter findings. The vascular flow void pattern is unremarkable. Remainder of the intra-axial and extra-axial compart ment evaluation is unremarkable. The orbits are negative. Paranasal sinuses and middle ear cavities and mastoid sinus air cells are clear. Skeletal structures are unremarkable. No incidental findings. IMPRESSION: No acute process; no focal findings.
--- NOTE | 2017-08-24 20:59 | CONS ---
CONSULTATION DATE OF CONSULTATION: 08/24/2017. CHIEF COMPLAINT: Intractable headache. HISTORY OF PRESENT ILLNESS: The patient is a pleasant 32-year-old female, who was being evaluated by the neurology service per the request of Dr. Castañeda for an intractable headache. The patient does have history of migraine headaches and states that she has been having a severe headache since Monday. The headache is mostly in the frontal region and temporal region bilaterally and she describes it as a throbbing pain and she rates it as severe as 9/10 in intensity. She has been recently receiving IV Solu-Medrol in my office for symptoms of numbness and tingling. She is being worked up for possible demyelinating disorder. The patient was admitted for further workup and management. She is receiving Tylenol IV and [place] 5 mg p.r.n. with minimal headache relief. Her CBC and comprehensive metabolic profile are normal. Her fasting lipid panel was normal except for mild dyslipidemia with an LDL of 104. An MRI of the brain has been ordered and she is scheduled to have this test done this evening. At the time of my evaluation, she is lying in her bed and appears to be in mild distress due to the pain. She denies any fevers. She is complaining of worsening blurred vision over the past 2 days affecting both eyes. PAST MEDICAL HISTORY: Migraine headaches, hypertension, history of transient ischemic attacks, history of MRSA, depression, anxiety disorder, history of tubal ligation. FAMILY HISTORY: Positive for multiple sclerosis, depression, hypertension, dyslipidemia. SOCIAL HISTORY: The patient is a former smoker. She denies any alcohol or drug use. HOME MEDICATIONS: Reviewed in the chart. ALLERGIES: SULFA DRUGS, CODEINE, REGLAN, PENICILLIN. REVIEW OF SYSTEMS: CONSTITUTIONAL: Positive for fatigue. EYES: As mentioned above. ENT: Negative. CARDIOVASCULAR: Negative. RESPIRATORY: Negative. NEUROLOGICAL: As mentioned above. GASTROINTESTINAL: Negative. GENITOURINARY: Negative. PSYCHIATRIC: Positive for history of depression and anxiety disorder. ENDOCRINE: Negative. DERMATOLOGICAL: Negative. MUSCULOSKELETAL: Negative. PHYSICAL EXAM: Vital signs show a temperature of 97.1, pulse 77, pulse 16, blood pressure 138/96. GENERAL APPEARANCE: The patient is an obese female who appears to be in mild distress due to the headache. HEENT: Normocephalic, atraumatic. No facial asymmetry is seen. Extraocular muscles are intact. Neck is supple with no masses felt. CARDIOVASCULAR: Regular rate and rhythm. ABDOMEN: Nontender nondistended. Extremities showed no edema or clubbing. NEUROLOGICAL: The patient is alert, aware and oriented x3. Speech and language are normal. Strength is full in all 4 extremities. Sensory was normal to light touch in all 4 extremities. Cranial nerve testing showed decreased light touch sensation on the right face compared to the left. Visual acuity is reduced bilaterally. No tremors or seizure-like activity is seen. IMPRESSION: 1. Intractable headache. 2. Blurred vision. 3. Right facial sensory deficit. 4. History of nonspecific white matter changes on MRI of the brain. RECOMMENDATION: The patient's headache continues to be severe at this time. It is not responding to IV acetaminophen and [place]. I will discontinue [place] and start her on Dilaudid 0.5 mg IV every 6 hours as needed. I will also start her on Depakote 500 mg every 8 hours IV. An MRI of the brain has been ordered. In the differential diagnosis, she may have aseptic meningitis, although she has no nuchal rigidity on my examination. This is within the differential diagnosis due to her recent IV steroid therapy. Continue neuro checks. I will consult Ophthalmology due to her acute blurred vision. Continue the rest of your current workup and management. I will continue to follow with you. Further recommendations to follow. Thank you for allowing me to participate in the care of your patient. If you have any questions, please feel free to contact me. THOMAS / TALIN: [id number] /
[2017-08-25] MEDS: VALPROATE SODIUM 500 MG in SODIUM CHLORIDE 0.9% 50 ML IVPB SCH ×2 (00:51→08:33)
[2017-08-25] MEDS: HYDROmorphone 0.5 MG/0.5 ML SYRINGE IVP PRN ×2 (00:58→06:31)
[2017-08-25] MEDS: SODIUM CHLORIDE 0.9% 1,000 ML IV SCH (06:32)
[2017-08-25] MEDS: ASPIRIN 81 MG PO SCH (08:35)
[2017-08-25] MEDS: HEPARIN SODIUM,PORCINE 5,000 UNIT/ML 1 ML VIAL SQ SCH ×2 (08:35→08:47)
[2017-08-25] MEDS: PANTOPRAZOLE 40 MG/10 ML VIAL IVP SCH (08:35)
[2017-08-25] MEDS: PROPRANOLOL 20 MG TAB PO SCH (08:35)
--- NOTE | 2017-08-25 13:33 | P.PN ---
Subjective Progress Note Date: 08/25/17 Patient is a pleasant 32-year-old female who is being followed by the neurology service for intractable headache. Patient does have a history of migraines and states she has had a migraine with the last few days. Patient reports headache intensity is a 9 out of 10. Patient had been receiving IV Solu -Medrol in my office for optic neuritis. Patient is currently being worked up as an outpatient for possible demyelinating disease. Patient had MRI of the brain done which showed no acute process. Patient has been receiving IV Dilaudid and Depakote which have greatly improved her headaches. Patient has been afebrile and blood pressure is stable. At the time of my evaluation, patient is resting comfortably in bed and appears to be in no acute distress. Objective - Vital Signs Vital signs: Vital Signs Temp 98.0 F 08/25/17 08:00 Pulse 85 08/25/17 08:00 Resp 12 08/25/17 08:00 BP 139/81 08/25/17 08:00 Pulse Ox 96 08/25/17 08:00 Intake & Output 08/24/17 08/25/17 08/25/17 18:59 06:59 18:59 Intake Total 3087 1140 Output Total 0 0 Balance 3087 1140 Weight 121.1 kg Intake: Intake, IV Titration 1600 900 Amount Sodium Chloride 0.9% 1, 1600 900 000 ml @ 100 mls/hr IV . Q10H JACKELIN Rx#:[id number] Oral 1487 240 Output: Stool 0 0 Other: # Voids 2 2 # Bowel Movements 0 - Exam PHYSICAL EXAM: GENERAL APPEARANCE: Patient is a well-developed, female who appears to be in no acute distress. HEENT: Normocephalic, atraumatic, no facial asymmetry is seen. Neck is supple with no masses felt. CARDIOVASCULAR: Regular rate and rhythm. ABDOMEN: Nontender, nondistended. EXTREMITIES: Show no edema or clubbing. NEUROLOGICAL EXAM: Patient is awake, alert, and oriented 3. Speech and then which are normal. Strength is full in all 4 extremities. Sensory deficit noted to the right face as compared to the left. Sensory exam is normal to light touch in all 4 extremities. No tremors or seizure-like activity noted. - Labs CBC & Chem 7: 08/24/17 06:14 08/24/17 06:14 Assessment and Plan Plan: Impression: 1. Intractable headache 2. Blurred vision, resolved 3. Right facial sensory deficit 4. History of nonspecific white matter changes on MRI of the brain 5. History of recent optic neuritis Recommendation: Patient's headache seems to be improving at this time. MRI of the brain was unremarkable. No new neurological deficits noted. Patient is to follow up in the office. Patient will be given ophthalmology referral for visual disturbance when she comes to the office. Patient is stable from a neurological standpoint. I will continue to follow with you on an as-needed basis. Feel free to call with any questions or concerns. I performed an examination of the patient and discussed the management with the [facility]. I have reviewed the [facility] notes and agree with the findings and plan of care.
[2017-08-25 13:37] VITALS: BP 163/86; PULSE 75; RESP 18; TEMP 98.2
[2017-08-25] MEDS ORDERED: HYDROmorphone 2 MG TAB PO PRN (15:05)
--- NOTE | 2017-08-25 21:18 | DS ---
DISCHARGE SUMMARY FINAL DIAGNOSES: 1. Severe headache with failure of outpatient treatment possible migraine cephalgia. 2. Numbness of the right side, rule out multiple sclerosis, migraine symptoms. 3. Transient ischemic attack, unlikely. 4. Sleep apnea. 5. Hysterectomy. 6. History of MS workup. 7. History of MRSA. 8. History of tubal ligation. 9. History of anxiety and depression. 10.Remote history of nicotine dependence. DISCHARGE DISPOSITION: The patient is being discharged in stable condition. Guarded prognosis. HISTORY: This 32-year-old with a past medical history of multiple medical problems, admitted with headaches as well as numbness. The patient was seen by Dr. Leone previously. Outpatient evaluation for MS is undergoing at this time. The patient had steroids in the outpatient setting. Otherwise currently, patient improved significantly. MRI did not show any acute symptoms. PHYSICAL EXAMINATION: On exam, vital signs are stable. Cardiac system: S1, S2. Abdomen soft. Nervous system: No focal deficits. DISCHARGE ADVICE AND MEDICATIONS: 1. Diet is cardiac diet. 2. Activity limited until followup. 3. Follow up with Dr. Leone in 1-2 days. 4. Follow up with primary physician in 1 week. MEDICATIONS ARE: 1. Tylenol 500 mg q.6h p.r.n. 2. Norvasc 5 mg q.h.s. 3. Depakote 500 mg t.i.d. 4. Inderal 20 mg p.o. b.i.d. MMMADHURIL / MARIAH: [id number] /
== END 2017-08-25 17:05 | disposition home or self-care (01) ==
LOC: INTOOBSV 19:45 → 6SEL 19:45 → UNDODISIN 08-25 17:05
PROVIDERS: ADMIT Internal Medicine; ATTEND Internal Medicine
DX: G43.909 Migraine, unspecified, not intractable, without status migrainosus (principal); G47.30 Sleep apnea, unspecified; I10 Essential (primary) hypertension; E66.9 Obesity, unspecified; Z68.30 Body mass index [BMI] 30.0-30.9, adult; K21.9 Gastro-esophageal reflux disease without esophagitis; F32.9 Major depressive disorder, single episode, unspecified; Z81.8 Family history of other mental and behavioral disorders; Z82.0 Family history of epilepsy and other diseases of the nervous system; Z82.49 Family history of ischemic heart disease and other diseases of the circulatory system; Z86.14 Personal history of Methicillin resistant Staphylococcus aureus infection; Z86.73 Personal history of transient ischemic attack (TIA), and cerebral infarction without residual deficits; Z87.891 Personal history of nicotine dependence; Z90.710 Acquired absence of both cervix and uterus; Z98.51 Tubal ligation status; Z88.5 Allergy status to narcotic agent; Z88.0 Allergy status to penicillin; Z88.2 Allergy status to sulfonamides; Z79.899 Other long term (current) drug therapy
CPT/HCPCS: 96376; 96365; 96366; 96372; 96375 ×2; 80061; 80048; 85652; 85025; 86140; 70551; G0379; G0378 ×3; J2060; J1644; C9113 ×2; J1170